=== PATIENT | male | born 1955 | race Caucasian/White ===

== ENCOUNTER 2019-06-12 13:07 | Inpatient (IN) | payer BC, OTHER ==
[2019-06-12 15:18] VITALS: BMI 25.5
--- NOTE | 2019-06-12 17:15 | HP ---
COWS - Scale Resting Pulse: 1= [place] 81-100 Sweatin= Chills/Flushing Restless Observation: 3= Extraneous Movement Pupil Size: 1= Pupils >than Normal Bone or Joint Aches: 2= Severe Diffuse Aches Runny Nose/ Eye Tearin= Runny Nose/Eyes GI Upset > 30mins: 2= Nausea/Diarrhea Tremor Observation: 1= Tremor [place], Not Seen Yawning Observation: 1= 1-2x During Session Anxiety or Irritability: 1=Feels Anxious/Irritable Goose Flesh Skin: 0=Smooth Skin COWS Score: 15 CIWA Score Nausea/Vomitin-Mild Nausea/No Vomiting Muscle Tremors: 3 Anxiety: 2 Agitation: 3 Paroxysmal Sweats: 3 Orientation: 0-Oriented Tacttile Disturbances: 0-None Auditory Disturbances: 0-None Visual Disturbances: 0-None Headache: 2-Mild CIWA-Ar Total Score: 14 - Admission Criteria OASAS Guidelines: Admission for Medically Managed Detox: Requires at least one of the followin. CIWA greater than 12 2. Seizures within the past 24 hours 3. Delirium tremens within the past 24 hours 4. Hallucinations within the past 24 hours 5. Acute intervention needed for co occurring medical disorder 6. Acute intervention needed for co occurring psychiatric disorder 7. Severe withdrawal that cannot be handled at a lower level of care (continued vomiting, continued diarrhea, abnormal vital signs) requiring intravenous medication and/or fluids 8. Admitting History and Physical - Smoking History Smoking history: Current every day smoker Have you smoked in the past 12 months: Yes Aproximately how many cigarettes per day: 0 - Alcohol/Substance Use Hx Alcohol Use: Yes Admission ROS [facility] Chief Complaint: here for alcohol and heroin detox Allergies/Adverse Reactions: Allergies Allergy/AdvReac Type Severity Reaction Status Date / Time ibuprofen Allergy Severe Verified 06/12/19 15:07 Penicillins Allergy Severe Swelling Verified 06/12/19 15:07 Sulfa (Sulfonamide Allergy Severe Verified 06/12/19 15:07 Antibiotics) History of Present Illness: 64 yo with long h/o of alcohol and heroin use, was not using for about 3 years, relapsed in February. Says he was under stress- started with alcohol use and now using heroin. Lives in [place], has disability, related to construction related accidents and disability. alcohol- 6 back- 8 beers, no h/o siezures, no DT's heroin- 1 bundle/day IH, no overdose, no narcan- pt instructed on getting on PMH- emphysema, COPD, DM- insulin DUR- no recent Utox- Mop, TRAM- 0 - Ebola screening Have you traveled outside of the country in the last 21 days: No Have you had contact with anyone from an Ebola affected area: No Do you have a fever: No - Review of Systems Constitutional: No Symptoms Reported EENT: reports: No Symptoms Reported Respiratory: reports: No Symptoms reported Cardiac: reports: No Symptoms Reported GI: reports: No Symptoms Reported : reports: No Symptoms Reported Musculoskeletal: reports: No Symptoms Reported Integumentary: reports: No Symptoms Reported Neuro: reports: No Symptoms reported Endocrine: reports: No Symptoms Reported Hematology: reports: No Symptoms Reported Psychiatric: reports: No Sypmtoms Reported Other Systems: Reviewed and Negative Patient History - Patient Medical History Hx Anemia: No Hx Asthma: Yes Hx Chronic Obstructive Pulmonary Disease (COPD): No Hx Cancer: No Hx Cardiac Disorders: No Hx Congestive Heart Failure: No Hx Hypertension: Yes Hx Hypercholesterolemia: Yes (zocor) Hx Pacemaker: No HX Cerebrovascular Accident: No Hx Seizures: No Hx Dementia: No Hx Diabetes: Yes (on insulin for 15 years) Hx Gastrointestinal Disorders: No Hx Liver Disease: No Hx Genitourinary Disorders: No Hx Sexually Transmitted Disorders: No Hx Renal Disease (ESRD): No Hx Thyroid Disease: No Hx Human Immunodeficiency Virus (HIV): No Hx Hepatitis C: No Hx Depression: No Hx Suicide Attempt: No Hx Bipolar Disorder: No Hx Schizophrenia: No - Patient Surgical History Past Surgical History: Yes Hx Neurologic Surgery: Yes (cervical laminectomy) Hx Cataract Extraction: No Hx Cardiac Surgery: No Hx Lung Surgery: No Hx Breast Surgery: No Hx Breast Biopsy: No Hx Abdominal Surgery: No Hx Appendectomy: Yes Hx Cholecystectomy: No Hx Genitourinary Surgery: No Hx Section: No Hx Orthopedic Surgery: Yes (shoulder sx.) Other Surgical History: removal of kidney stones in 2008 Anesthesia Reaction: No - PPD History Date: 11/02/15 Results: 0 mm - Smoking Cessation Smoking history: Current every day smoker Have you smoked in the past 12 months: Yes Aproximately how many cigarettes per day: 0 Cigars Per Day: 0 Hx Chewing Tobacco Use: No Initiated information on smoking cessation: No 'Breaking Loose' booklet given: 06/12/19 - Substances abused Heroin Substance route: Inhalation Frequency: Daily Amount used: 10 bags Age of first use: 25 Date of last use: 06/12/19 Alcohol Substance route: Oral Frequency: Daily Amount used: 6 pk daily Age of first use: 25 Date of last use: 06/10/19 Admission Physical Exam [facility] - Vital Signs Vital Signs: Vital Signs - 24 hr 06/12/19 15:14 Temperature 98.2 F Pulse Rate 95 H Respiratory 20 Rate Blood Pressure 131/67 - Physical General Appearance: Yes: Within Normal Limits, Nourished HEENTM: Yes: Within Normal Limits, Normal Voice Respiratory: Yes: Within Normal Limits, Chest Non-Tender, Lungs Clear Neck: Yes: Within Normal Limits Cardiology: Yes: Within Normal Limits Abdominal: Yes: Within Normal Limits Genitourinary: Yes: Within Normal Limits Musculoskeletal: Yes: Within Normal Limits Extremities: Yes: Within Normal Limits Neurological: Yes: Within Normal Limits Integumentary: Yes: Within Normal Limits Lymphatic: Yes: Within Normal Limits - Diagnostic (1) Alcohol withdrawal Current Visit: No Status: Acute (2) Opioid dependence with withdrawal Current Visit: No Status: Acute (3) Anxiety and depression Current Visit: No Status: Chronic (4) Diabetes 1.5, managed as type 1 Current Visit: No Status: Chronic (5) Essential hypertension Current Visit: No Status: Chronic (6) Heroin dependence Current Visit: No Status: Chronic Breathalyzer - Breathalyzer Breathalyzer: 0 Urine Drug Screen - Test Device Lot number: [id number] Expiration date: 02/20/21 - Control Is test valid?: Yes - Results Drug screen NEGATIVE: No Urine drug screen results: MOP-Opiates Inpatient Rehab Admission - Rehab Decision to Admit Inpatient rehab admission?: No
[2019-06-12] MEDS ORDERED: NALOXONE HCL 0.4 MG/ML VIAL IM PRN (17:21)
[2019-06-12] MEDS ORDERED: clonazePAM 0.5 MG TABLET PO PRN (17:21)
[2019-06-12] MEDS ORDERED: cloNIDine HCL 0.1 MG TABLET PO PRN (17:21)
[2019-06-12] MEDS ORDERED: LORazepam 1 MG TABLET PO PRN (17:23)
[2019-06-12] MEDS ORDERED: NICOTINE POLACRILEX 2 MG GUM BUC PRN (17:25)
[2019-06-12] MEDS ORDERED: MAGNESIUM HYDROX 2400MG/30ML ORAL SUSPENSION 30 ML CUP PO PRN (17:25)
[2019-06-12] MEDS ORDERED: MENTHOL/PHENOL 1 EACH UD MM PRN (17:25)
[2019-06-12] MEDS ORDERED: ACETAMINOPHEN 325 MG TABLET (FP) PO PRN (17:25)
[2019-06-12] MEDS ORDERED: MAGNESIUM CITRATE 300 ML BOTTLE PO PRN (17:25)
[2019-06-12] MEDS ORDERED: ALBUTEROL SO4 8 GM HFA INHALER IH PRN (17:30)
[2019-06-12] MEDS ORDERED: INSULIN SQ SCH (18:00)
[2019-06-12] MEDS ORDERED: METHADONE HCL 10 MG TABLET (FOR DETOX USE ONLY) PO ONE (18:45)
[2019-06-12] MEDS: LORazepam 1 MG TABLET PO SCH ×2 (19:05→22:02)
[2019-06-12] MEDS: INSULIN SLIDING SCALE (NOVOLOG) 1 VIAL SQ SCH (19:08)
[2019-06-12] MEDS: INSULIN (LEVEMIR) 100 UNITS/ML UNITS SQ SCH (20:38)
[2019-06-12] MEDS: MAG HYDROX/AL HYDROX/SIMETH 30 ML UNIT-DOSE CUP PO PRN (21:18)
[2019-06-12] MEDS: THIAMINE HCL 100 MG TABLET (FP) PO SCH (22:02)
[2019-06-12] MEDS: FLUTICASONE/SALMETEROL 100 MCG/50 MCG DISKUS IH SCH (22:47)
[2019-06-13] MEDS: LORazepam 1 MG TABLET PO SCH ×2 (05:57→10:26)
[2019-06-13] MEDS ORDERED: LOPERAMIDE HCL 2 MG CAPSULE PO PRN (06:42)
[2019-06-13] MEDS: INSULIN SLIDING SCALE (NOVOLOG) 1 VIAL SQ SCH ×4 (08:30→21:03)
[2019-06-13] MEDS: INSULIN (LEVEMIR) 100 UNITS/ML UNITS SQ SCH ×2 (08:31→20:30)
[2019-06-13] MEDS ORDERED: METHADONE HCL 10 MG TABLET (FOR DETOX USE ONLY) ONE (09:58)
[2019-06-13] MEDS ORDERED: METHADONE HCL 5 MG TABLET (FOR DETOX USE ONLY) ONE (09:58)
[2019-06-13] MEDS ORDERED: METHADONE (DETOX) 20 MG, METHADONE (DETOX) 5 MG PO ONE (10:00)
[2019-06-13] MEDS ORDERED: PATIENT'S OWN MEDICATION (NON-FORMULARY) (Umeclidinium Brm/Vilanterol Tr [Anoro Ellipta 62 IH SCH (10:00)
--- NOTE | 2019-06-13 10:02 | PN ---
[facility] CIWA - CIWA Score Nausea/Vomitin-Mild Nausea/No Vomiting Muscle Tremors: 3 Anxiety: 3 Agitation: 2 Paroxysmal Sweats: 1-Minimal Palms Moist Orientation: 0-Oriented Tacttile Disturbances: 1-Very Mild Itch/Numbness Auditory Disturbances: 1-Very Mild Visual Disturbances: 0-None Headache: 1-Very Mild CIWA-Ar Total Score: 13 [facility] COWS - Scale Resting Pulse: 1= [place] 81-100 Sweatin= Chills/Flushing Restless Observation: 0= Sits Still Pupil Size: 1= Pupils >than Normal Bone or Joint Aches: 2= Severe Diffuse Aches Runny Nose/ Eye Tearin= Nasal Congestion GI Upset > 30mins: 2= Nausea/Diarrhea (encourage imodium prn) Tremor Observation of Outstretched Hands: 1= Tremor [place], Not Seen Yawning Observation: 0= None Anxiety or Irritability: 1=Feels Anxious/Irritable Goose Flesh Skin: 3=Piloe[place] COWS Score: 13 S Progress Note (SOAP) Subjective: 64 years old male admitted on 06/12/19 for alcohol and opiate withdrawal sx management treated with ativan and methadone detox regimen nausea zofran 4 mg sl x 1 diarrhea encourage imodium ambulating on hallway alert steady gait denies dizziness Objective: 06/13/19 10:19 Vital Signs Temperature 97.2 F L 06/13/19 09:09 Pulse Rate 83 06/13/19 09:09 Respiratory Rate 18 06/13/19 09:09 Blood Pressure 122/64 06/13/19 09:09 O2 Sat by Pulse Oximetry (%) Laboratory Last Values POC Glucometer 242 UNITS (80-120) 06/13/19 05:52 06/13/19 10:19 lab pending Assessment: 06/13/19 10:19 alcohol and opiate withdrawal sx Plan: continue ativan and methadone detox regimen
[2019-06-13 10:16] LABS: HEMATOCRIT 40.3 % (35.4-49); HEMOGLOBIN 13.5 GM/dL (11.7-16.9); MCH 31.9 pg (25.7-33.7); MCHC 33.6 g/dl (32.0-35.9); MEAN CELL VOLUME 95.1 fl (80-96); PLATELET COUNT 187 K/MM3 (134-434); RBC 4.24 M/mm3 (4.00-5.60); RDW 13.3 % (11.9-15.9); WHITE BLOOD COUNT 6.5 K/mm3 (4.0-10.0)
[2019-06-13] MEDS: LISINOPRIL 10 MG TABLET (FP) PO SCH (10:21)
[2019-06-13] MEDS: ASPIRIN 81 MG CHEWABLE TABLETS PO SCH (10:22)
[2019-06-13] MEDS: HYDROCHLOROTHIAZIDE 25 MG TABLET (FP) PO SCH (10:22)
[2019-06-13] MEDS: PRENATAL VITAMINS W/ FOLIC ACID TABLET (FP) PO SCH (10:22)
[2019-06-13] MEDS: FLUTICASONE/SALMETEROL 100 MCG/50 MCG DISKUS IH SCH ×2 (10:24→21:45)
[2019-06-13] MEDS: ONDANSETRON *ODT* 4 MG TABLET SL ONE ×2 (10:24→10:25)
[2019-06-13] MEDS ORDERED: diazePAM 5 MG TABLET PO PRN (10:32)
[2019-06-13 10:38] LABS: ALBUMIN 3.4 g/dl (3.4-5.0); BILIRUBIN,TOTAL 0.6 mg/dL (0.2-1); BLOOD UREA NITROGEN 25.3 mg/dL (7-18); CALCIUM 8.4 mg/dL (8.5-10.1); CREATININE 0.9 mg/dL (0.55-1.3); POTASSIUM 4.2 mmol/L (3.5-5.1); TOT PROT 6.2 g/dl (6.4-8.2)
[2019-06-13] MEDS ORDERED: INSULIN (NOVOLOG) ASPART 100 UNITS/ML 10ML VIAL SQ ONE (11:58)
--- NOTE | 2019-06-13 15:06 | CONSULT ---
[facility] Psychiatric Consult - Data Date of interview: 06/13/19 Admission source: [facility] Identifying data: This is one of several admissions to [facility] for this 64 y/ o male self-referred for detoxification (ANGEL issues : alcohol, heroin) . Interviewed at [address] [place] [address]. Patient is single, a father of one, domiciled, unemployed (disabled) and supported on SSI benefits. Substance Abuse History: Discussed with patient. Able to maintain sobriety for three consecutive years until recent relapse. Details are concordant with current [facility] data collected on admission : Smoking history: Current every day smoker. Have you smoked in the past 12 months: Yes. Aproximately how many cigarettes per day: 0. Cigars Per Day: 0. Hx Chewing Tobacco Use: No. Initiated information on smoking cessation: No. 'Breaking Loose' booklet given : 06/12/19. - Substances abused. Heroin. Substance route: Inhalation. Frequency: Daily. Amount used: 10 bags. Age of first use: 25. Date of last use: 06/12/19. Alcohol. Substance route: Oral. Frequency: Daily. Amount used: 6 pk daily. Age of first use: 25. Date of last use: 06/10/19 Medical History: Medical profile is remarkable for a history of bronchial asthma , emphysema, hypertension, insulin-dependent diabetes mellitus, chronic low back pain and pituitary adenoma. Noted report of past cervical laminectomy and arthroscopic surgery (shoulders). Psychiatric History: Forgetful historian. Patient endorses the diagnosis of MDD + history of three psychiatric hospitalizations ([facility]) . Not able to recall names of the other institutions. Chronically non-adherent to psychiatric OPD care. Mr Mansfield has reportedly been prescribed various medications (citalopram, aripriprazole, duloxetine) in the past. Not taken for months, as per self-report. Patient admits to one suicide attempt, years ago, via overdose with medications. Physical/Sexual Abuse/Trauma History: Patient denies history of abuse. Stressors : loneliness (living alone), addictions and medical illnesses. Additional Comment: Urine drug screen results: MOP-Opiates. Noted. Mental Status Exam - Mental Status Exam Alert and Oriented to: Time, Place, Person Cognitive Function: Good Patient Appearance: Well Groomed Mood: Withdrawn, Hopeful Affect: Mood Congruent, Constricted Patient Behavior: Fatigued, Appropriate, Cooperative Speech Pattern: Clear, Appropriate Voice Loudness: Normal Thought Process: Intact, Goal Oriented Thought Disorder: Not Present Hallucinations: Denies Suicidal Ideation: Denies Homicidal Ideation: Denies Insight/Judgement: Fair Sleep: Poorly, Difficulty falling asleep Appetite: Fair Muscle strength/Tone: Normal Gait/Station: Normal Psychiatric Findings - Problem List ([place] 1, 2,3) (1) Alcohol withdrawal Current Visit: Yes Status: Acute (2) Opioid dependence with withdrawal Current Visit: Yes Status: Acute (3) Nicotine dependence Current Visit: Yes Status: Chronic Qualifiers: Nicotine product type: cigarettes Substance use status: unspecified nicotine-induced disorder Qualified Code(s): F17.219 - Nicotine dependence, cigarettes, with unspecified nicotine-induced disorders (4) Substance induced mood disorder Current Visit: Yes Status: Chronic (5) History of depression Current Visit: Yes Status: Chronic (6) Insomnia Current Visit: Yes Status: Chronic (7) Non-compliance Current Visit: Yes Status: Chronic - Initial Treatment Plan Initial Treatment Plan: Psychoeducation. Sleep hygiene. Detoxification. Support. Insomnia is addressed with belsomra 5 mg po hs prn. Side effects/ benefits revisited with the patient. mr Mansfield is in agreement with this plan of care. Antidepressant medications discussed with patient. Not accepted at this time. Motivational counseling. Groups. AA/NA meetings. MAT services recommended to patient : met with ambivalence. Observation.
[2019-06-13] MEDS: diazePAM 5 MG TABLET PO SCH ×2 (15:28→21:45)
[2019-06-13] MEDS: MAG HYDROX/AL HYDROX/SIMETH 30 ML UNIT-DOSE CUP PO PRN (18:46)
[2019-06-13 21:20] LABS: URINE APPEARANCE CLEAR; URINE BILIRUBIN NEGATIVE (NEGATIVE); URINE COLOR YELLOW; URINE GLUCOSE (UA) 3+ (NEGATIVE); URINE KETONE NEGATIVE (NEGATIVE); URINE LEUK ESTERASE NEGATIVE (NEGATIVE); URINE NITRITE NEGATIVE (NEGATIVE); URINE PROTEIN NEGATIVE (NEGATIVE); URINE UROBILINOGEN 0.2 mg/dL (0.2-1.0)
[2019-06-13] MEDS: THIAMINE HCL 100 MG TABLET (FP) PO SCH (21:45)
[2019-06-13] MEDS: SUVOREXANT 5 MG TABLET PO PRN (21:48)
[2019-06-14] MEDS: diazePAM 5 MG TABLET PO PRN ×3 (01:49→16:06)
[2019-06-14] MEDS ORDERED: LORazepam 0.5 MG TABLET PO SCH (05:00)
[2019-06-14] MEDS: diazePAM 5 MG TABLET PO SCH ×3 (05:19→21:50)
[2019-06-14] MEDS: INSULIN SLIDING SCALE (NOVOLOG) 1 VIAL SQ SCH ×4 (07:14→21:55)
[2019-06-14] MEDS: INSULIN (LEVEMIR) 100 UNITS/ML UNITS SQ SCH ×2 (07:59→21:54)
[2019-06-14] MEDS ORDERED: INSULIN (NOVOLOG) ASPART 100 UNITS/ML 10ML VIAL SQ ONE ×2 (08:31→11:55)
--- NOTE | 2019-06-14 09:44 | PN ---
[facility] CIWA - CIWA Score Nausea/Vomitin-Mild Nausea/No Vomiting Muscle Tremors: 3 Anxiety: 3 Agitation: 2 Paroxysmal Sweats: 2 Orientation: 0-Oriented Tacttile Disturbances: 1-Very Mild Itch/Numbness Auditory Disturbances: 0-None Visual Disturbances: 0-None Headache: 0-None Present CIWA-Ar Total Score: 12 S COWS - Scale Resting Pulse: 0= [place] 80 or Below Sweatin= Chills/Flushing Restless Observation: 0= Sits Still Pupil Size: 1= Pupils >than Normal Bone or Joint Aches: 1= Mild Discomfort Runny Nose/ Eye Tearin= Nasal Congestion GI Upset > 30mins: 2= Nausea/Diarrhea (no diarrhea) Tremor Observation of Outstretched Hands: 2= Slight Tremor Visible Yawning Observation: 2= >3x During Session Anxiety or Irritability: 2=Irritable/Anxious Goose Flesh Skin: 0=Smooth Skin COWS Score: 12 S Progress Note (SOAP) Subjective: 64 years old male admitted on 06/12/19 for alcohol and opiate withdrawal sx management treated with valium and methadone detox regimen reported 32 years of insulin dependent diabetes "counting calories" equation for insulin coverage discuss alcohol consumption related glucose 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 to discuss diabetes diet Objective: 06/14/19 09:42 Vital Signs Temperature 96.0 F L 06/14/19 09:11 Pulse Rate 78 06/14/19 09:11 Respiratory Rate 18 06/14/19 09:11 Blood Pressure 121/64 06/14/19 09:11 O2 Sat by Pulse Oximetry (%) Laboratory Last Values WBC 6.5 K/mm3 (4.0-10.0) 06/13/19 08:15 RBC 4.24 M/mm3 (4.00-5.60) 06/13/19 08:15 Hgb 13.5 GM/dL (11.7-16.9) 06/13/19 08:15 Hct 40.3 % (35.4-49) 06/13/19 08:15 MCV 95.1 fl (80-96) 06/13/19 08:15 MCH 31.9 pg (25.7-33.7) 06/13/19 08:15 MCHC 33.6 g/dl (32.0-35.9) 06/13/19 08:15 RDW 13.3 % (11.9-15.9) 06/13/19 08:15 Plt Count 187 K/MM3 (134-434) D 06/13/19 08:15 MPV 9.0 fl (7.5-11.1) 06/13/19 08:15 Sodium 137 mmol/L (136-145) 06/13/19 08:15 Potassium 4.2 mmol/L (3.5-5.1) 06/13/19 08:15 Chloride 103 mmol/L (98-107) 06/13/19 08:15 Carbon Dioxide 30 mmol/L (21-32) 06/13/19 08:15 Anion Gap 4 MMOL/L (8-16) L 06/13/19 08:15 BUN 25.3 mg/dL (7-18) H 06/13/19 08:15 Creatinine 0.9 mg/dL (0.55-1.3) 06/13/19 08:15 Est GFR (CKD-EPI)AfAm 105.72 06/13/19 08:15 Est GFR (CKD-EPI)NonAf 91.22 06/13/19 08:15 POC Glucometer 181 UNITS (80-120) 06/14/19 05:20 Random Glucose 193 mg/dL (74-106) H 06/13/19 08:15 Calcium 8.4 mg/dL (8.5-10.1) L 06/13/19 08:15 Total Bilirubin 0.6 mg/dL (0.2-1) 06/13/19 08:15 AST 15 U/L (15-37) 06/13/19 08:15 ALT 24 U/L (13-61) 06/13/19 08:15 Alkaline Phosphatase 54 U/L (45-117) 06/13/19 08:15 Total Protein 6.2 g/dl (6.4-8.2) L 06/13/19 08:15 Albumin 3.4 g/dl (3.4-5.0) 06/13/19 08:15 Urine Color Yellow 06/13/19 21:10 Urine Appearance Clear 06/13/19 21:10 Urine pH 5.0 (5.0-8.0) 06/13/19 21:10 Ur Specific [place] 1.026 (1.010-1.035) 11/20/19 21:10 Urine Protein Negative (NEGATIVE) 06/13/19 21:10 Urine Glucose (UA) 3+ (NEGATIVE) H 06/13/19 21:10 Urine Ketones Negative (NEGATIVE) 06/13/19 21:10 Urine Blood Negative (NEGATIVE) 06/13/19 21:10 Urine Nitrite Negative (NEGATIVE) 06/13/19 21:10 Urine Bilirubin Negative (NEGATIVE) 06/13/19 21:10 Urine Urobilinogen 0.2 mg/dL (0.2-1.0) 06/13/19 21:10 Ur Leukocyte Esterase Negative (NEGATIVE) 06/13/19 21:10 RPR Titer Nonreactive (NONREACTIVE) 06/13/19 08:15 lab noted long history of diabetes strong recommend oral fluid intake discuss risks of diabetes related fluid volume deficit Assessment: 06/14/19 09:44 alcohol and opiate withdrawal sx patient was taking oxy monthly since 201506/14/19 09:46 discuss medication assisted treatment program Plan: continue valium and methadone detox regimen lease picker narcan from pharmacy
[2019-06-14] MEDS ORDERED: METHADONE HCL 10 MG TABLET (FOR DETOX USE ONLY) PO ONE (10:00)
[2019-06-14] MEDS: FLUTICASONE/SALMETEROL 100 MCG/50 MCG DISKUS IH SCH ×2 (10:14→21:55)
[2019-06-14] MEDS: PRENATAL VITAMINS W/ FOLIC ACID TABLET (FP) PO SCH (10:14)
[2019-06-14] MEDS: HYDROCHLOROTHIAZIDE 25 MG TABLET (FP) PO SCH (10:14)
[2019-06-14] MEDS: ASPIRIN 81 MG CHEWABLE TABLETS PO SCH (10:14)
[2019-06-14] MEDS: LISINOPRIL 10 MG TABLET (FP) PO SCH (10:14)
[2019-06-14] MEDS: INSULIN (NOVOLOG) ASPART 100 UNITS/ML 10ML VIAL SQ SCH (17:31)
[2019-06-14] MEDS: hydrOXYzine PAMOATE 25 MG CAPSULE (FP) PO PRN (17:33)
[2019-06-14] MEDS: MAG HYDROX/AL HYDROX/SIMETH 30 ML UNIT-DOSE CUP PO PRN (17:58)
[2019-06-14] MEDS: THIAMINE HCL 100 MG TABLET (FP) PO SCH (21:50)
[2019-06-14] MEDS: SUVOREXANT 5 MG TABLET PO PRN (21:51)
[2019-06-15] MEDS ORDERED: LORazepam 0.5 MG TABLET PO PRN
[2019-06-15] MEDS ORDERED: diazePAM 5 MG TABLET PO PRN (00:01)
[2019-06-15] MEDS ORDERED: LORazepam 0.5 MG TABLET PO SCH (05:00)
[2019-06-15] MEDS: diazePAM 5 MG TABLET PO SCH ×2 (06:11→17:06)
[2019-06-15] MEDS: INSULIN SLIDING SCALE (NOVOLOG) 1 VIAL SQ SCH ×4 (07:53→22:39)
[2019-06-15] MEDS: INSULIN (NOVOLOG) ASPART 100 UNITS/ML 10ML VIAL SQ SCH ×3 (07:53→16:59)
[2019-06-15] MEDS: INSULIN (LEVEMIR) 100 UNITS/ML UNITS SQ SCH ×2 (07:54→22:38)
[2019-06-15] MEDS: TAMSULOSIN HCL 0.4 MG CAP PO SCH (07:54)
[2019-06-15] MEDS ORDERED: METHADONE HCL 10 MG TABLET (FOR DETOX USE ONLY) ONE (08:36)
[2019-06-15] MEDS ORDERED: METHADONE HCL 5 MG TABLET (FOR DETOX USE ONLY) ONE (08:36)
[2019-06-15] MEDS ORDERED: METHADONE (DETOX) 10 MG, METHADONE (DETOX) 5 MG PO ONE (10:00)
[2019-06-15] MEDS: FLUTICASONE/SALMETEROL 100 MCG/50 MCG DISKUS IH SCH ×2 (10:18→22:33)
[2019-06-15] MEDS: LISINOPRIL 10 MG TABLET (FP) PO SCH (10:19)
[2019-06-15] MEDS: HYDROCHLOROTHIAZIDE 25 MG TABLET (FP) PO SCH (10:19)
[2019-06-15] MEDS: PRENATAL VITAMINS W/ FOLIC ACID TABLET (FP) PO SCH (10:19)
[2019-06-15] MEDS: ASPIRIN 81 MG CHEWABLE TABLETS PO SCH (10:19)
[2019-06-15] MEDS: diazePAM 5 MG TABLET PO PRN ×2 (10:19→22:40)
[2019-06-15] MEDS ORDERED: INSULIN SLIDING SCALE (NOVOLOG) 1 VIAL SQ ONE (11:42)
--- NOTE | 2019-06-15 13:35 | PN ---
[facility] CIWA - CIWA Score Nausea/Vomitin-Mild Nausea/No Vomiting Muscle Tremors: 2 Anxiety: 2 Agitation: 2 Paroxysmal Sweats: 1-Minimal Palms Moist Orientation: 0-Oriented Tacttile Disturbances: 1-Very Mild Itch/Numbness Auditory Disturbances: 0-None Visual Disturbances: 0-None Headache: 2-Mild CIWA-Ar Total Score: 11 S COWS - Scale Resting Pulse: 1= [place] 81-100 Sweatin= No chills or Flushing Restless Observation: 1= Difficult to Sit Still Pupil Size: 1= Pupils >than Normal Bone or Joint Aches: 1= Mild Discomfort Runny Nose/ Eye Tearin= Nasal Congestion GI Upset > 30mins: 1= Stomach Cramp Tremor Observation of Outstretched Hands: 1= Tremor [place], Not Seen Yawning Observation: 1= 1-2x During Session Anxiety or Irritability: 2=Irritable/Anxious Goose Flesh Skin: 0=Smooth Skin COWS Score: 10 [facility] Progress Note (SOAP) Subjective: alert,irritable,anxious,interrupted sleep,tremor,pain in the body and back Objective: 06/15/19 13:33 Vital Signs Temperature 96.8 F L 06/15/19 13:30 Pulse Rate 91 H 06/15/19 13:30 Respiratory Rate 18 06/15/19 13:30 Blood Pressure 137/75 06/15/19 13:30 O2 Sat by Pulse Oximetry (%) 06/15/19 13:34 Laboratory Last Values WBC 6.5 K/mm3 (4.0-10.0) 06/13/19 08:15 RBC 4.24 M/mm3 (4.00-5.60) 06/13/19 08:15 Hgb 13.5 GM/dL (11.7-16.9) 06/13/19 08:15 Hct 40.3 % (35.4-49) 06/13/19 08:15 MCV 95.1 fl (80-96) 06/13/19 08:15 MCH 31.9 pg (25.7-33.7) 06/13/19 08:15 MCHC 33.6 g/dl (32.0-35.9) 06/13/19 08:15 RDW 13.3 % (11.9-15.9) 06/13/19 08:15 Plt Count 187 K/MM3 (134-434) D 06/13/19 08:15 MPV 9.0 fl (7.5-11.1) 06/13/19 08:15 Sodium 137 mmol/L (136-145) 06/13/19 08:15 Potassium 4.2 mmol/L (3.5-5.1) 06/13/19 08:15 Chloride 103 mmol/L (98-107) 06/13/19 08:15 Carbon Dioxide 30 mmol/L (21-32) 06/13/19 08:15 Anion Gap 4 MMOL/L (8-16) L 06/13/19 08:15 BUN 25.3 mg/dL (7-18) H 06/13/19 08:15 Creatinine 0.9 mg/dL (0.55-1.3) 06/13/19 08:15 Est GFR (CKD-EPI)AfAm 105.72 06/13/19 08:15 Est GFR (CKD-EPI)NonAf 91.22 06/13/19 08:15 POC Glucometer 264 UNITS (80-120) 06/15/19 11:36 Random Glucose 193 mg/dL (74-106) H 06/13/19 08:15 Calcium 8.4 mg/dL (8.5-10.1) L 06/13/19 08:15 Total Bilirubin 0.6 mg/dL (0.2-1) 06/13/19 08:15 AST 15 U/L (15-37) 06/13/19 08:15 ALT 24 U/L (13-61) 06/13/19 08:15 Alkaline Phosphatase 54 U/L (45-117) 06/13/19 08:15 Total Protein 6.2 g/dl (6.4-8.2) L 06/13/19 08:15 Albumin 3.4 g/dl (3.4-5.0) 06/13/19 08:15 Urine Color Yellow 06/13/19 21:10 Urine Appearance Clear 06/13/19 21:10 Urine pH 5.0 (5.0-8.0) 06/13/19 21:10 Ur Specific [place] 1.026 (1.010-1.035) 06/13/19 21:10 Urine Protein Negative (NEGATIVE) 06/13/19 21:10 Urine Glucose (UA) 3+ (NEGATIVE) H 06/13/19 21:10 Urine Ketones Negative (NEGATIVE) 06/13/19 21:10 Urine Blood Negative (NEGATIVE) 06/13/19 21:10 Urine Nitrite Negative (NEGATIVE) 06/13/19 21:10 Urine Bilirubin Negative (NEGATIVE) 06/13/19 21:10 Urine Urobilinogen 0.2 mg/dL (0.2-1.0) 06/13/19 21:10 Ur Leukocyte Esterase Negative (NEGATIVE) 06/13/19 21:10 RPR Titer Nonreactive (NONREACTIVE) 06/13/19 08:15 Assessment: 06/15/19 13:34 withdrawal symptom Plan: continue detox methadone and valium regimen,bgm monitoring with insulin coverage
[2019-06-15] MEDS: hydrOXYzine PAMOATE 25 MG CAPSULE (FP) PO PRN (15:53)
[2019-06-15] MEDS: THIAMINE HCL 100 MG TABLET (FP) PO SCH (22:33)
--- NOTE | 2019-06-15 23:34 | EKG ---
Test Reason : Blood Pressure : / mmHG Vent. Rate : 076 BPM Atrial Rate : 076 BPM P-R Int : 148 ms QRS Dur : 094 ms QT Int : 366 ms P-R-T Axes : 055 049 033 degrees QTc Int : 411 ms NORMAL SINUS RHYTHM NORMAL ECG NO PREVIOUS ECGS AVAILABLE Confirmed by MD Jm, Nile ([id number]) on 06/15/2019 11:34:17 PM Referred By: Confirmed By:Nile Oneal MD
[2019-06-16] MEDS ORDERED: LORazepam 0.5 MG TABLET PO ONE (05:00)
[2019-06-16] MEDS ORDERED: diazePAM 5 MG TABLET PO ONE (06:00)
[2019-06-16] MEDS: INSULIN (NOVOLOG) ASPART 100 UNITS/ML 10ML VIAL SQ SCH ×3 (07:56→17:05)
[2019-06-16] MEDS: INSULIN SLIDING SCALE (NOVOLOG) 1 VIAL SQ SCH ×4 (07:57→21:31)
[2019-06-16] MEDS: INSULIN (LEVEMIR) 100 UNITS/ML UNITS SQ SCH ×2 (07:58→21:30)
[2019-06-16] MEDS ORDERED: METHADONE HCL 10 MG TABLET (FOR DETOX USE ONLY) PO ONE (10:00)
[2019-06-16] MEDS: ASPIRIN 81 MG CHEWABLE TABLETS PO SCH (10:46)
[2019-06-16] MEDS: TAMSULOSIN HCL 0.4 MG CAP PO SCH (10:46)
[2019-06-16] MEDS: HYDROCHLOROTHIAZIDE 25 MG TABLET (FP) PO SCH (10:46)
[2019-06-16] MEDS: LISINOPRIL 10 MG TABLET (FP) PO SCH (10:46)
[2019-06-16] MEDS: PRENATAL VITAMINS W/ FOLIC ACID TABLET (FP) PO SCH (10:46)
[2019-06-16] MEDS: hydrOXYzine PAMOATE 25 MG CAPSULE (FP) PO PRN ×2 (10:49→20:38)
[2019-06-16] MEDS: FLUTICASONE/SALMETEROL 100 MCG/50 MCG DISKUS IH SCH ×2 (10:51→21:34)
[2019-06-16] MEDS: ACETAMINOPHEN 325 MG TABLET (FP) PO PRN ×2 (11:03→20:21)
[2019-06-16] MEDS: METHOCARBAMOL 500 MG TABLET PO PRN ×2 (11:04→20:38)
--- NOTE | 2019-06-16 11:13 | PN ---
[facility] CIWA - CIWA Score Nausea/Vomitin-No Nausea/No Vomiting Muscle Tremors: None Anxiety: 2 Agitation: 0-Normal Activity Paroxysmal Sweats: 2 Orientation: 0-Oriented Tacttile Disturbances: 0-None Auditory Disturbances: 0-None Visual Disturbances: 0-None Headache: 0-None Present CIWA-Ar Total Score: 4 S COWS - Scale Resting Pulse: 0= [place] 80 or Below Sweatin= Chills/Flushing Restless Observation: 0= Sits Still Pupil Size: 0= Normal to Room Light Bone or Joint Aches: 0= None Runny Nose/ Eye Tearin= None GI Upset > 30mins: 0= None Tremor Observation of Outstretched Hands: 0= None Yawning Observation: 1= 1-2x During Session Anxiety or Irritability: 2=Irritable/Anxious Goose Flesh Skin: 0=Smooth Skin COWS Score: 4 [facility] Progress Note (SOAP) Subjective: c/o mild anxiety and sweats. Objective: 06/16/19 11:12 Vital Signs 06/16/19 06/16/19 06/16/19 03:30 06:32 09:28 Temperature 97.6 F 96.6 F L Pulse Rate 88 93 H Respiratory 18 18 18 Rate Blood Pressure 148/84 121/77 Laboratory Last Values WBC 6.5 K/mm3 (4.0-10.0) 06/13/19 08:15 RBC 4.24 M/mm3 (4.00-5.60) 06/13/19 08:15 Hgb 13.5 GM/dL (11.7-16.9) 06/13/19 08:15 Hct 40.3 % (35.4-49) 06/13/19 08:15 MCV 95.1 fl (80-96) 06/13/19 08:15 MCH 31.9 pg (25.7-33.7) 06/13/19 08:15 MCHC 33.6 g/dl (32.0-35.9) 06/13/19 08:15 RDW 13.3 % (11.9-15.9) 06/13/19 08:15 Plt Count 187 K/MM3 (134-434) D 06/13/19 08:15 MPV 9.0 fl (7.5-11.1) 06/13/19 08:15 Sodium 137 mmol/L (136-145) 06/13/19 08:15 Potassium 4.2 mmol/L (3.5-5.1) 06/13/19 08:15 Chloride 103 mmol/L (98-107) 06/13/19 08:15 Carbon Dioxide 30 mmol/L (21-32) 06/13/19 08:15 Anion Gap 4 MMOL/L (8-16) L 06/13/19 08:15 BUN 25.3 mg/dL (7-18) H 06/13/19 08:15 Creatinine 0.9 mg/dL (0.55-1.3) 06/13/19 08:15 Est GFR (CKD-EPI)AfAm 105.72 06/13/19 08:15 Est GFR (CKD-EPI)NonAf 91.22 06/13/19 08:15 POC Glucometer 234 UNITS (80-120) 06/16/19 06:24 Random Glucose 193 mg/dL (74-106) H 06/13/19 08:15 Calcium 8.4 mg/dL (8.5-10.1) L 06/13/19 08:15 Total Bilirubin 0.6 mg/dL (0.2-1) 06/13/19 08:15 AST 15 U/L (15-37) 06/13/19 08:15 ALT 24 U/L (13-61) 06/13/19 08:15 Alkaline Phosphatase 54 U/L (45-117) 06/13/19 08:15 Total Protein 6.2 g/dl (6.4-8.2) L 06/13/19 08:15 Albumin 3.4 g/dl (3.4-5.0) 06/13/19 08:15 Urine Color Yellow 06/13/19 21:10 Urine Appearance Clear 06/13/19 21:10 Urine pH 5.0 (5.0-8.0) 06/13/19 21:10 Ur Specific [place] 1.026 (1.010-1.035) 06/13/19 21:10 Urine Protein Negative (NEGATIVE) 06/13/19 21:10 Urine Glucose (UA) 3+ (NEGATIVE) H 06/13/19 21:10 Urine Ketones Negative (NEGATIVE) 06/13/19 21:10 Urine Blood Negative (NEGATIVE) 06/13/19 21:10 Urine Nitrite Negative (NEGATIVE) 06/13/19 21:10 Urine Bilirubin Negative (NEGATIVE) 06/13/19 21:10 Urine Urobilinogen 0.2 mg/dL (0.2-1.0) 06/13/19 21:10 Ur Leukocyte Esterase Negative (NEGATIVE) 06/13/19 21:10 RPR Titer Nonreactive (NONREACTIVE) 06/13/19 08:15 Labs noted. Assessment: 06/16/19 11:12 AOX3, in no acute respiratory distress. Full ROM, ambulating in the unit. Mild Withdrawal symptoms. For d/c tomorrow. Plan: continue detox. D/C in AM.
[2019-06-16] MEDS: MAG HYDROX/AL HYDROX/SIMETH 30 ML UNIT-DOSE CUP PO PRN (20:21)
[2019-06-16] MEDS: THIAMINE HCL 100 MG TABLET (FP) PO SCH (21:33)
[2019-06-16] MEDS: SUVOREXANT 5 MG TABLET PO PRN (21:34)
[2019-06-16] MEDS: MELATONIN 5 MG TABLETS PO PRN (21:35)
[2019-06-17] MEDS: METHOCARBAMOL 500 MG TABLET PO PRN ×4 (03:16→23:36)
[2019-06-17] MEDS: ACETAMINOPHEN 325 MG TABLET (FP) PO PRN ×4 (03:16→23:37)
[2019-06-17] MEDS ORDERED: METHADONE HCL 5 MG TABLET (FOR DETOX USE ONLY) PO ONE (06:00)
[2019-06-17] MEDS: INSULIN (NOVOLOG) ASPART 100 UNITS/ML 10ML VIAL SQ SCH ×3 (08:25→16:59)
[2019-06-17] MEDS: INSULIN SLIDING SCALE (NOVOLOG) 1 VIAL SQ SCH ×4 (08:25→21:16)
[2019-06-17] MEDS: INSULIN (LEVEMIR) 100 UNITS/ML UNITS SQ SCH ×2 (08:26→20:45)
[2019-06-17] MEDS: PRENATAL VITAMINS W/ FOLIC ACID TABLET (FP) PO SCH (10:23)
[2019-06-17] MEDS: FLUTICASONE/SALMETEROL 100 MCG/50 MCG DISKUS IH SCH ×2 (10:23→21:16)
[2019-06-17] MEDS: TAMSULOSIN HCL 0.4 MG CAP PO SCH (10:23)
[2019-06-17] MEDS: ASPIRIN 81 MG CHEWABLE TABLETS PO SCH (10:23)
[2019-06-17] MEDS: LISINOPRIL 10 MG TABLET (FP) PO SCH (10:23)
[2019-06-17] MEDS: HYDROCHLOROTHIAZIDE 25 MG TABLET (FP) PO SCH (10:23)
--- NOTE | 2019-06-17 10:30 | DS ---
[facility] Detox Discharge Summary Admission Date: 06/12/19 Discharge Date: 06/17/19 - History Present History: Alcohol Dependence, Opioid Dependence Additional Comments: 64 YEARS OLD MALE ADMITTED ON 06/12/19 FOR ALCOHOL AND OPIATE WITHDRAWAL SX MANAGEMENT TREATED WITH VALIUM AND METHADONE DETOX REGIMEN PATIENT IS ALERT ORIENTED X 3 CARDIAC S1S2 REGULAR RATE RHYTHM RESPIRATORY CLEAR LUNG BILATERALLY ON AUSCULTATION ABDOMEN SOFT NO REBOUND TENDERNESS - Physical Exam Results Vital Signs: Vital Signs Temperature 97.2 F L 06/17/19 09:26 Pulse Rate 91 H 06/17/19 09:26 Respiratory Rate 18 06/17/19 09:26 Blood Pressure 147/83 06/17/19 09:26 O2 Sat by Pulse Oximetry (%) Pertinent Admission Physical Exam Findings: ALCOHOL AND OPIATE WITHDRAWAL SX Laboratory Last Values WBC 6.5 K/mm3 (4.0-10.0) 06/13/19 08:15 RBC 4.24 M/mm3 (4.00-5.60) 06/13/19 08:15 Hgb 13.5 GM/dL (11.7-16.9) 06/13/19 08:15 Hct 40.3 % (35.4-49) 06/13/19 08:15 MCV 95.1 fl (80-96) 06/13/19 08:15 MCH 31.9 pg (25.7-33.7) 06/13/19 08:15 MCHC 33.6 g/dl (32.0-35.9) 06/13/19 08:15 RDW 13.3 % (11.9-15.9) 06/13/19 08:15 Plt Count 187 K/MM3 (134-434) D 06/13/19 08:15 MPV 9.0 fl (7.5-11.1) 06/13/19 08:15 Sodium 137 mmol/L (136-145) 06/13/19 08:15 Potassium 4.2 mmol/L (3.5-5.1) 06/13/19 08:15 Chloride 103 mmol/L (98-107) 06/13/19 08:15 Carbon Dioxide 30 mmol/L (21-32) 06/13/19 08:15 Anion Gap 4 MMOL/L (8-16) L 06/13/19 08:15 BUN 25.3 mg/dL (7-18) H 06/13/19 08:15 Creatinine 0.9 mg/dL (0.55-1.3) 06/13/19 08:15 Est GFR (CKD-EPI)AfAm 105.72 06/13/19 08:15 Est GFR (CKD-EPI)NonAf 91.22 06/13/19 08:15 POC Glucometer 141 UNITS (80-120) 06/17/19 06:11 Random Glucose 193 mg/dL (74-106) H 06/13/19 08:15 Calcium 8.4 mg/dL (8.5-10.1) L 06/13/19 08:15 Total Bilirubin 0.6 mg/dL (0.2-1) 06/13/19 08:15 AST 15 U/L (15-37) 06/13/19 08:15 ALT 24 U/L (13-61) 06/13/19 08:15 Alkaline Phosphatase 54 U/L (45-117) 06/13/19 08:15 Total Protein 6.2 g/dl (6.4-8.2) L 06/13/19 08:15 Albumin 3.4 g/dl (3.4-5.0) 06/13/19 08:15 Urine Color Yellow 06/13/19 21:10 Urine Appearance Clear 06/13/19 21:10 Urine pH 5.0 (5.0-8.0) 06/13/19 21:10 Ur Specific [place] 1.026 (1.010-1.035) 06/13/19 21:10 Urine Protein Negative (NEGATIVE) 06/13/19 21:10 Urine Glucose (UA) 3+ (NEGATIVE) H 06/13/19 21:10 Urine Ketones Negative (NEGATIVE) 06/13/19 21:10 Urine Blood Negative (NEGATIVE) 06/13/19 21:10 Urine Nitrite Negative (NEGATIVE) 06/13/19 21:10 Urine Bilirubin Negative (NEGATIVE) 06/13/19 21:10 Urine Urobilinogen 0.2 mg/dL (0.2-1.0) 06/13/19 21:10 Ur Leukocyte Esterase Negative (NEGATIVE) 06/13/19 21:10 RPR Titer Nonreactive (NONREACTIVE) 06/13/19 08:15 LAB NOTED - Treatment Hospital Course: Detox Protocol Followed, Detoxed Safely, Responded well, Discharged Condition Good, Rehab Referral Accepted Patient has Accepted a Rehab Referral to: [facility] - Medication Discharge Medications: Ambulatory Orders Hydrochlorothiazide [Hctz -] 25 mg PO DAILY 06/09/12 Insulin (Levemir) [Levemir Flexpen -] 40 units SQ BID 06/09/12 Aspirin [ASA -] 81 mg PO DAILY 08/30/14 Lisinopril [Prinivil -] 30 mg PO DAILY 08/30/14 Alfuzosin HCl [Alfuzosin HCl ER] 10 mg PO DAILY 10/31/15 Umeclidinium Brm/Vilanterol Tr [Anoro Ellipta 62.5-25 Mcg INH] 1 each IH DAILY 06/12/19 Insulin Lispro [Humalog Kwikpen U-100] 30 unit SQ TID 06/14/19 Naloxone HCl [Narcan] 4 mg NS ASDIR PRN #1 spray 06/14/19 - Diagnosis (1) Alcohol withdrawal Current Visit: Yes Status: Acute Qualifiers: Complication of substance-induced condition: uncomplicated Qualified Code(s ): F10.230 - Alcohol dependence with withdrawal, uncomplicated (2) Opioid dependence with withdrawal Current Visit: Yes Status: Acute (3) Nicotine dependence Current Visit: Yes Status: Acute Qualifiers: Nicotine product type: cigarettes Substance use status: unspecified nicotine-induced disorder Qualified Code(s): F17.219 - Nicotine dependence, cigarettes, with unspecified nicotine-induced disorders (4) Substance induced mood disorder Current Visit: Yes Status: Suspected (5) Asthma Current Visit: Yes Status: Chronic Qualifiers: Asthma severity: unspecified severity Asthma complication type: uncomplicated (6) Diabetes 1.5, managed as type 1 Current Visit: Yes Status: Chronic (7) Essential hypertension Current Visit: Yes Status: Chronic (8) Hypercholesterolemia Current Visit: Yes Status: Chronic - AMA Did Patient Leave Against Medical Advice: No
--- NOTE | 2019-06-17 11:45 | PN ---
Psychiatric Progress Note Vital Signs: Vital Signs Period Temp Pulse Resp BP Sys/Michaels Pulse Ox Last 24 Hr 97.0 F-98.2 F 87-100 18-18 114-147/66-83 Date of Session: 06/17/19 Chief Complaint:: Assess for suicidal ideation HPI: Patient admitted to for alcohol and cocaine dependence. Stat consult ordered after patient stated to nursing staff . "I might as well kill myself if discharged." ROS: Patient is coherent, alert + oriented X3. Patient is calm , cooperative but tearful and worried about his discharge plan. Current Medications: Active Medications Generic Name Dose Route Start Last Admin Trade Name Freq PRN Reason Stop Dose Admin Acetaminophen 650 mg 06/12/19 17:25 06/17/19 03:16 Tylenol - PO 650 mg Q6H PRN Administration PAIN LEVEL 4 - 6 Acetaminophen 650 mg 06/12/19 17:25 Tylenol - PO Q6H PRN FEVER Al Hydroxide/Mg Hydroxide 30 ml 06/12/19 17:25 06/16/19 20:21 Mylanta Oral Suspension - PO 30 ml Q6H PRN Administration DYSPEPSIA Albuterol Sulfate 2 puff 06/12/19 17:30 Ventolin Hfa Inhaler - IH Q4H PRN ASTHMA Aspirin 81 mg 06/13/19 10:00 06/17/19 10:23 Asa - PO 81 mg DAILY KATHY Administration Eucalyptus/Menthol/Phenol/Sorbitol 1 each 06/12/19 17:25 Cepastat Lozenge - MM 06/18/19 17:25 Q4H PRN SORE THROAT Hydrochlorothiazide 25 mg 06/13/19 10:00 06/17/19 10:23 Hctz - PO 25 mg DAILY KATHY Administration Hydroxyzine Pamoate 25 mg 06/12/19 17:25 06/16/19 20:38 Vistaril - PO 06/18/19 17:25 25 mg Q6H PRN Administration For Anxiety Insulin Aspart 1 vial 06/14/19 12:05 06/17/19 08:25 Novolog Vial Sliding Scale - SQ Not Given ACHS [facility] Protocol Insulin Aspart 15 units 06/14/19 16:30 06/17/19 08:25 Novolog Vial SQ 15 units TIDAC [facility] Administration Protocol Insulin Detemir 40 units 06/14/19 12:04 06/17/19 08:26 Levemir Vial SQ 40 units BID@0800,2000 KATHY Administration Lisinopril 30 mg 06/13/19 10:00 06/17/19 10:23 Prinivil PO 30 mg DAILY KATHY Administration Loperamide HCl 4 mg 06/13/19 06:42 Imodium - PO Q6H PRN DIARRHEA Magnesium Citrate 300 ml 06/12/19 17:25 Citroma - PO Q48H PRN CONSTIPATION Magnesium Hydroxide 30 ml 06/12/19 17:25 Milk Of Magnesia - PO PRN PRN CONSTIPATION Melatonin 5 mg 06/12/19 22:00 06/16/19 21:35 Melatonin PO 5 mg HS PRN Administration INSOMNIA Methocarbamol 500 mg 06/12/19 17:25 06/17/19 10:25 Robaxin - PO 06/18/19 17:25 500 mg Q6H PRN Administration MUSCLE SPASMS Naloxone HCl 0.4 mg 06/12/19 17:21 Narcan - IM PRN PRN RESPIRATORY DEPRESSION Nicotine Polacrilex 2 mg 06/12/19 17:25 Nicorette Gum - BUC Q2H PRN NICOTINE REPLACEMENT RX Multivit/Folic Acid/Iron 1 tab 06/13/19 10:00 06/17/19 10:23 Vitamins (Sjr) - PO 1 tab DAILY KATHY Administration Fluticasone/Salmeterol 1 puff 06/12/19 22:00 06/17/19 10:23 Advair 100mcg/50mcg - IH 1 puff BID KATHY Administration Tamsulosin HCl 0.4 mg 06/15/19 08:30 06/17/19 10:23 Flomax - PO 0.4 mg DAILY@0830 KATHY Administration Thiamine HCl 100 mg 06/12/19 22:00 06/16/19 21:33 Vitamin B1 - PO 100 mg HS KATHY Administration Medication(s) Change(s): No. Current Side Effect: No Lab tests ordered: No Lab tests reviewed: Yes Provider note:: Patient seen by Dr. Sykes on 06/13/19. Dr. Sykes note read and appreciated. Patient is a 64 year old male with a past history of MDD. Reports no psychiatric treatment in several years. History of one suicide attempt by overdose in 2002. Stat consult ordered after he stated to nursing staff, " I might as well kill myself." Upon approach patient was polite, well dressed, calm and cooperative. Billing Manager able to speak to law writer in a private office. As per patient he informed nursing staff " I might as well kill myself" after he was told that his discharge is today. Patient stated to law writer that he made those comments due to his frustration with his discharge planning. Stated to law writer that there is no confirmed placement for him after discharge. Reports being informed that there are no available beds for him in rehab and that [facility] has yet to confirm a bed for him. Patient upset, tearful and highly concerned about being discharge with no aftercare. Mr. Mansfield stated to law writer that he does not know what will happen to him if he is discharged with no aftercare. Patient unable to state that he won't attempt to hurt himself. Stated that because detox is a short stay, his desire to use fentanyl remains high. Mr. Mansfield reports positive outcomes when continuing treatment in rehab. Case discussed with multidisciplinary team. At this time it is imperative that patient remains in detox until a rehab bed becomes available. If discharge, patient can be at risk of relapsing, which then puts him at further risk to hurt himself. Patient does not require 1:1 observation as he denies suicidal/homicidal ideation on the unit. No need to start psychopharmacological treatment at this time. Patient denies depressive symtoms. States all he needs is further treatment for his substance abuse and is highly motivated to continue treatment in rehab. Total face to face time:: 60 Mental Status Exam - Mental Status Exam Alert and Oriented to: Time, Place, Person Cognitive Function: Good Patient Appearance: Well Groomed Mood: Sad, Anxious Affect: Mood Congruent Patient Behavior: Crying (Tearful) Speech Pattern: Appropriate Voice Loudness: Normal Thought Process: Intact, Goal Oriented Thought Disorder: Not Present Hallucinations: Denies Suicidal Ideation: Denies Homicidal Ideation: Denies Insight/Judgement: Poor Sleep: Fair Appetite: Fair Muscle strength/Tone: Normal Gait/Station: Normal Psychiatric Treatment Plan - Problem List (1) Alcohol withdrawal Qualifiers: Complication of substance-induced condition: uncomplicated Qualified Code(s ): F10.230 - Alcohol dependence with withdrawal, uncomplicated (2) Nicotine dependence Qualifiers: Nicotine product type: cigarettes Substance use status: in withdrawal Qualified Code(s): F17.213 - Nicotine dependence, cigarettes, with withdrawal (3) Opioid dependence with withdrawal Comment: .. (4) History of depression Comment: .. (5) Substance induced mood disorder Comment: .. (6) Insomnia Comment: ..
--- NOTE | 2019-06-17 13:33 | PN ---
[facility] CIWA - CIWA Score Nausea/Vomitin-No Nausea/No Vomiting Muscle Tremors: None Anxiety: 1-Mildly Anxious Agitation: 0-Normal Activity Paroxysmal Sweats: 1-Minimal Palms Moist Orientation: 0-Oriented Tacttile Disturbances: 0-None Auditory Disturbances: 0-None Visual Disturbances: 0-None Headache: 0-None Present CIWA-Ar Total Score: 2 S COWS - Scale Resting Pulse: 1= [place] 81-100 Sweatin= No chills or Flushing Restless Observation: 0= Sits Still Pupil Size: 0= Normal to Room Light Bone or Joint Aches: 0= None Runny Nose/ Eye Tearin= None GI Upset > 30mins: 0= None Tremor Observation of Outstretched Hands: 0= None Yawning Observation: 0= None Anxiety or Irritability: 1=Feels Anxious/Irritable Goose Flesh Skin: 0=Smooth Skin COWS Score: 2 [facility] Progress Note (SOAP) Subjective: 64 years old male admitted on 06/12/19 for alcohol and opiate withdrawal sx management treated wtih valium and methadone detox regimen scheduled for discharged today [facility] no available bed as per [facility] no weekend intake for admission patient reported that he wants to kill self that fear of using heroin and drinking alcohol once discharged from detox program psychiatrist evaluation for self harm ideation observation overnight wait for [facility] available as well as [facility] no 1:1 necessary as per psychiatric evaluation Objective: 06/17/19 13:33 Vital Signs Temperature 97.2 F L 06/17/19 09:26 Pulse Rate 91 H 06/17/19 09:26 Respiratory Rate 18 06/17/19 09:26 Blood Pressure 147/83 06/17/19 09:26 O2 Sat by Pulse Oximetry (%) Laboratory Last Values WBC 6.5 K/mm3 (4.0-10.0) 06/13/19 08:15 RBC 4.24 M/mm3 (4.00-5.60) 06/13/19 08:15 Hgb 13.5 GM/dL (11.7-16.9) 06/13/19 08:15 Hct 40.3 % (35.4-49) 06/13/19 08:15 MCV 95.1 fl (80-96) 06/13/19 08:15 MCH 31.9 pg (25.7-33.7) 06/13/19 08:15 MCHC 33.6 g/dl (32.0-35.9) 06/13/19 08:15 RDW 13.3 % (11.9-15.9) 06/13/19 08:15 Plt Count 187 K/MM3 (134-434) D 06/13/19 08:15 MPV 9.0 fl (7.5-11.1) 06/13/19 08:15 Sodium 137 mmol/L (136-145) 06/13/19 08:15 Potassium 4.2 mmol/L (3.5-5.1) 06/13/19 08:15 Chloride 103 mmol/L (98-107) 06/13/19 08:15 Carbon Dioxide 30 mmol/L (21-32) 06/13/19 08:15 Anion Gap 4 MMOL/L (8-16) L 06/13/19 08:15 BUN 25.3 mg/dL (7-18) H 06/13/19 08:15 Creatinine 0.9 mg/dL (0.55-1.3) 06/13/19 08:15 Est GFR (CKD-EPI)AfAm 105.72 06/13/19 08:15 Est GFR (CKD-EPI)NonAf 91.22 06/13/19 08:15 POC Glucometer 227 UNITS (80-120) 06/17/19 11:56 Random Glucose 193 mg/dL (74-106) H 06/13/19 08:15 Calcium 8.4 mg/dL (8.5-10.1) L 06/13/19 08:15 Total Bilirubin 0.6 mg/dL (0.2-1) 06/13/19 08:15 AST 15 U/L (15-37) 06/13/19 08:15 ALT 24 U/L (13-61) 06/13/19 08:15 Alkaline Phosphatase 54 U/L (45-117) 06/13/19 08:15 Total Protein 6.2 g/dl (6.4-8.2) L 06/13/19 08:15 Albumin 3.4 g/dl (3.4-5.0) 06/13/19 08:15 Urine Color Yellow 06/13/19 21:10 Urine Appearance Clear 06/13/19 21:10 Urine pH 5.0 (5.0-8.0) 06/13/19 21:10 Ur Specific [place] 1.026 (1.010-1.035) 06/13/19 21:10 Urine Protein Negative (NEGATIVE) 06/13/19 21:10 Urine Glucose (UA) 3+ (NEGATIVE) H 06/13/19 21:10 Urine Ketones Negative (NEGATIVE) 06/13/19 21:10 Urine Blood Negative (NEGATIVE) 06/13/19 21:10 Urine Nitrite Negative (NEGATIVE) 06/13/19 21:10 Urine Bilirubin Negative (NEGATIVE) 06/13/19 21:10 Urine Urobilinogen 0.2 mg/dL (0.2-1.0) 06/13/19 21:10 Ur Leukocyte Esterase Negative (NEGATIVE) 06/13/19 21:10 RPR Titer Nonreactive (NONREACTIVE) 06/13/19 08:15 lab noted Assessment: alcohol and opiate withdrawal sx Plan: psychiatrist observation
[2019-06-17] MEDS: MAG HYDROX/AL HYDROX/SIMETH 30 ML UNIT-DOSE CUP PO PRN (20:45)
[2019-06-17] MEDS: MELATONIN 5 MG TABLETS PO PRN (21:16)
[2019-06-17] MEDS: THIAMINE HCL 100 MG TABLET (FP) PO SCH (21:16)
[2019-06-18] MEDS: ACETAMINOPHEN 325 MG TABLET (FP) PO PRN (03:06)
[2019-06-18] MEDS: METHOCARBAMOL 500 MG TABLET PO PRN (06:12)
[2019-06-18] MEDS: INSULIN (LEVEMIR) 100 UNITS/ML UNITS SQ SCH (07:11)
[2019-06-18] MEDS: INSULIN (NOVOLOG) ASPART 100 UNITS/ML 10ML VIAL SQ SCH ×2 (07:12→12:00)
[2019-06-18] MEDS: INSULIN SLIDING SCALE (NOVOLOG) 1 VIAL SQ SCH ×2 (07:13→11:59)
[2019-06-18] MEDS: TAMSULOSIN HCL 0.4 MG CAP PO SCH (08:56)
[2019-06-18] MEDS ORDERED: NAPROXEN 375 MG TABLET (FP) PO ONE ×2 (09:41)
[2019-06-18] MEDS: HYDROCHLOROTHIAZIDE 25 MG TABLET (FP) PO SCH (09:55)
[2019-06-18] MEDS: ASPIRIN 81 MG CHEWABLE TABLETS PO SCH (09:55)
[2019-06-18] MEDS: PRENATAL VITAMINS W/ FOLIC ACID TABLET (FP) PO SCH (09:55)
[2019-06-18] MEDS: LISINOPRIL 10 MG TABLET (FP) PO SCH (09:56)
[2019-06-18] MEDS: FLUTICASONE/SALMETEROL 100 MCG/50 MCG DISKUS IH SCH (09:59)
--- NOTE | 2019-06-18 10:02 | DS ---
[facility] Detox Discharge Summary Admission Date: 06/12/19 Discharge Date: 06/18/19 - History Present History: Alcohol Dependence, Opioid Dependence Additional Comments: 64 years old male admitted on 06/12/19 for alcohol and opiate withdrawal sx management treated with valium and methadone detox regimen patient is alert oriented x 3 cardiac [id number] rate rhythm respiratory clear lung bilaterally on auscultation abdomen soft no rebound tenderness - Physical Exam Results Vital Signs: Vital Signs Temperature 96.2 F L 06/18/19 09:15 Pulse Rate 88 06/18/19 09:15 Respiratory Rate 18 06/18/19 09:15 Blood Pressure 129/72 06/18/19 09:15 O2 Sat by Pulse Oximetry (%) Pertinent Admission Physical Exam Findings: alcohol and opiate withdrawal sx Laboratory Last Values WBC 6.5 K/mm3 (4.0-10.0) 06/13/19 08:15 RBC 4.24 M/mm3 (4.00-5.60) 06/13/19 08:15 Hgb 13.5 GM/dL (11.7-16.9) 06/13/19 08:15 Hct 40.3 % (35.4-49) 06/13/19 08:15 MCV 95.1 fl (80-96) 06/13/19 08:15 MCH 31.9 pg (25.7-33.7) 06/13/19 08:15 MCHC 33.6 g/dl (32.0-35.9) 06/13/19 08:15 RDW 13.3 % (11.9-15.9) 06/13/19 08:15 Plt Count 187 K/MM3 (134-434) D 06/13/19 08:15 MPV 9.0 fl (7.5-11.1) 06/13/19 08:15 Sodium 137 mmol/L (136-145) 06/13/19 08:15 Potassium 4.2 mmol/L (3.5-5.1) 06/13/19 08:15 Chloride 103 mmol/L (98-107) 06/13/19 08:15 Carbon Dioxide 30 mmol/L (21-32) 06/13/19 08:15 Anion Gap 4 MMOL/L (8-16) L 06/13/19 08:15 BUN 25.3 mg/dL (7-18) H 06/13/19 08:15 Creatinine 0.9 mg/dL (0.55-1.3) 06/13/19 08:15 Est GFR (CKD-EPI)AfAm 105.72 06/13/19 08:15 Est GFR (CKD-EPI)NonAf 91.22 06/13/19 08:15 POC Glucometer 183 UNITS (80-120) 06/18/19 05:12 Random Glucose 193 mg/dL (74-106) H 06/13/19 08:15 Calcium 8.4 mg/dL (8.5-10.1) L 06/13/19 08:15 Total Bilirubin 0.6 mg/dL (0.2-1) 06/13/19 08:15 AST 15 U/L (15-37) 06/13/19 08:15 ALT 24 U/L (13-61) 06/13/19 08:15 Alkaline Phosphatase 54 U/L (45-117) 06/13/19 08:15 Total Protein 6.2 g/dl (6.4-8.2) L 06/13/19 08:15 Albumin 3.4 g/dl (3.4-5.0) 06/13/19 08:15 Urine Color Yellow 06/13/19 21:10 Urine Appearance Clear 06/13/19 21:10 Urine pH 5.0 (5.0-8.0) 06/13/19 21:10 Ur Specific [place] 1.026 (1.010-1.035) 06/13/19 21:10 Urine Protein Negative (NEGATIVE) 06/13/19 21:10 Urine Glucose (UA) 3+ (NEGATIVE) H 06/13/19 21:10 Urine Ketones Negative (NEGATIVE) 06/13/19 21:10 Urine Blood Negative (NEGATIVE) 06/13/19 21:10 Urine Nitrite Negative (NEGATIVE) 06/13/19 21:10 Urine Bilirubin Negative (NEGATIVE) 06/13/19 21:10 Urine Urobilinogen 0.2 mg/dL (0.2-1.0) 06/13/19 21:10 Ur Leukocyte Esterase Negative (NEGATIVE) 06/13/19 21:10 RPR Titer Nonreactive (NONREACTIVE) 06/13/19 08:15 lab noted long history of diabetes - Treatment Hospital Course: Detox Protocol Followed, Detoxed Safely, Responded well, Discharged Condition Good, Rehab Referral Accepted Patient has Accepted a Rehab Referral to: [facility] - Medication Discharge Medications: Ambulatory Orders Hydrochlorothiazide [Hctz -] 25 mg PO DAILY 06/09/12 Insulin (Levemir) [Levemir Flexpen -] 40 units SQ BID 06/09/12 Aspirin [ASA -] 81 mg PO DAILY 08/30/14 Lisinopril [Prinivil -] 30 mg PO DAILY 08/30/14 Alfuzosin HCl [Alfuzosin HCl ER] 10 mg PO DAILY 10/31/15 Umeclidinium Brm/Vilanterol Tr [Anoro Ellipta 62.5-25 Mcg INH] 1 each IH DAILY 06/12/19 Insulin Lispro [Humalog Kwikpen U-100] 30 unit SQ TID 06/14/19 Naloxone HCl [Narcan] 4 mg NS ASDIR PRN #1 spray 06/14/19 - Diagnosis (1) Alcohol withdrawal Current Visit: Yes Status: Acute Qualifiers: Complication of substance-induced condition: uncomplicated Qualified Code(s ): F10.230 - Alcohol dependence with withdrawal, uncomplicated (2) Opioid dependence with withdrawal Current Visit: Yes Status: Acute (3) Nicotine dependence Current Visit: Yes Status: Acute Qualifiers: Nicotine product type: cigarettes Substance use status: in withdrawal Qualified Code(s): F17.213 - Nicotine dependence, cigarettes, with withdrawal (4) Substance induced mood disorder Current Visit: Yes Status: Suspected (5) Asthma Current Visit: Yes Status: Chronic Qualifiers: Asthma severity: mild Asthma persistence: intermittent Asthma complication type: with status asthmaticus Qualified Code(s): J45.22 - Mild intermittent asthma with status asthmaticus (6) Diabetes 1.5, managed as type 1 Current Visit: Yes Status: Chronic (7) Essential hypertension Current Visit: Yes Status: Chronic (8) Hypercholesterolemia Current Visit: Yes Status: Chronic - AMA Did Patient Leave Against Medical Advice: No CIWA Score - CIWA Score Nausea/Vomitin-No Nausea/No Vomiting Muscle Tremors: None Anxiety: 1-Mildly Anxious Agitation: 0-Normal Activity Paroxysmal Sweats: No Perspiration Orientation: 0-Oriented Tacttile Disturbances: 0-None Auditory Disturbances: 0-None Visual Disturbances: 0-None Headache: 0-None Present CIWA-Ar Total Score: 1 COWS (PN) - Opiate Withdrawal Resting Pulse: 1= CT 81-100 Sweatin= No chills or Flushing Restless Observation: 0= Sits Still Pupil Size: 0= Normal to Room Light Bone or Joint Aches: 0= None Runny Nose/ Eye Tearin= None GI Upset > 30mins: 0= None Tremor Observation of Outstretched Hands: 1= Tremor [place], Not Seen Yawning Observation: 0= None Anxiety or Irritability: 0= None Goose Flesh Skin: 0=Smooth Skin COWS Score: 2
[2019-06-18] MEDS ORDERED: INSULIN SLIDING SCALE (NOVOLOG) 1 VIAL SQ ONE (12:02)
[2019-06-18 13:08] VITALS: BP 109/71; PULSE 97; TEMP 97.1
--- NOTE | 2019-06-18 16:01 | EKG ---
Test Reason : Blood Pressure : / mmHG Vent. Rate : 079 BPM Atrial Rate : 079 BPM P-R Int : 136 ms QRS Dur : 092 ms QT Int : 374 ms P-R-T Axes : 050 045 010 degrees QTc Int : 428 ms NORMAL SINUS RHYTHM MINIMAL VOLTAGE CRITERIA FOR LVH, MAY BE NORMAL VARIANT BORDERLINE ECG WHEN COMPARED WITH ECG OF 15-JUN-2019 15:07, NO SIGNIFICANT CHANGE WAS FOUND Confirmed by JANN OMALELY, WILLIAM ([id number]) on 06/18/2019 4:01:23 PM Referred By: Confirmed By:WILLIAM FORTE MD
== END 2019-06-18 14:45 | disposition other institution (70) | DRG 897 ==
LOC: YASAS 13:07 → Y3N 18:09
PROVIDERS: ADMIT Allergy & Immunology; ATTEND Allergy & Immunology
PROC: HZ2ZZZZ Detoxification Services for Substance Abuse Treatment (ICD-10-PCS; principal; 2019-06-12)
DX: F10.230 Alcohol dependence with withdrawal, uncomplicated (principal); F14.20 Cocaine dependence, uncomplicated; J45.22 Mild intermittent asthma with status asthmaticus; R45.851 Suicidal ideations; F11.23 Opioid dependence with withdrawal; F17.210 Nicotine dependence, cigarettes, uncomplicated; F19.24 Other psychoactive substance dependence with psychoactive substance-induced mood disorder; I10 Essential (primary) hypertension; J43.8 Other emphysema; E78.00 Pure hypercholesterolemia, unspecified; E10.9 Type 1 diabetes mellitus without complications; Z79.4 Long term (current) use of insulin; M54.5 Low back pain; G89.29 Other chronic pain; Z88.0 Allergy status to penicillin; Z88.2 Allergy status to sulfonamides; Z88.6 Allergy status to analgesic agent
CPT/HCPCS: 36415; 80053; 81003; 82962; 85027; 86593; 93005; 93010; J0735; Q0162

== ENCOUNTER 2019-06-18 14:59 | Inpatient (IN) | payer BC ==
--- NOTE | 2019-06-18 10:07 | HP ---
[facility] Rehab Assess/Revision - Admission History Admitted to Rehab from: [facility] Date of Admission to Rehab: 06/18/19 - Findings Detox History & Physical reviewed: Yes Concur with findings: Yes Comments/Additional Findings: transferred from detox to rehab admission as per protocol Inpatient Rehab Admission - Rehab Decision to Admit Inpatient rehab admission?: Yes - Initial Determination Are CD services needed?: Yes Free of communicable disease: Yes Not in need of hospitalization: Yes - Rehab Admission Criteria Previous failed treatment: Yes Poor recovery environment: Yes Comorbidities: Yes Lacks judgement: Yes Patient is meeting Inpatient Rehab admission criteria:: Yes
[~2019-06-18 14:59] MED LIST: ACETAMINOPHEN 325 MG TABLET (FP) PO PRN; ALBUTEROL SO4 8 GM HFA INHALER IH PRN; LOPERAMIDE HCL 2 MG CAPSULE PO PRN; MAG HYDROX/AL HYDROX/SIMETH 30 ML UNIT-DOSE CUP PO PRN; MAGNESIUM CITRATE 300 ML BOTTLE PO PRN; MAGNESIUM HYDROX 2400MG/30ML ORAL SUSPENSION 30 ML CUP PO PRN; MENTHOL/PHENOL 1 EACH UD MM PRN; NALOXONE HCL NS PRN; NICOTINE 14 MG/24 HOURS TOPICAL PATCH TD PRN; NICOTINE POLACRILEX 2 MG GUM BC PRN; P-EPHED 60MG/TRIPROLIDI 2.5MG TABLET PO PRN; guaiFENesin 200 MG/10 ML 10 ML UNIT-DOSE CUPS PO PRN
[2019-06-18] MEDS ORDERED: INSULIN (LEVEMIR) 100 UNITS/ML UNITS SQ SCH (16:30)
[2019-06-18] MEDS: INSULIN (NOVOLOG) ASPART 100 UNITS/ML 10ML VIAL SQ SCH (18:51)
[2019-06-18] MEDS: THIAMINE HCL 100 MG TABLET (FP) PO SCH (21:26)
[2019-06-18] MEDS: INSULIN (LEVEMIR) 100 UNITS/ML UNITS SQ SCH (21:26)
[2019-06-18] MEDS ORDERED: MELATONIN 5 MG TABLETS PO PRN (22:00)
[2019-06-18] MEDS ORDERED: NAPROXEN 375 MG TABLET (FP) PO PRN (22:15)
[2019-06-18] MEDS ORDERED: INSULIN (NOVOLOG) ASPART 100 UNITS/ML 10ML VIAL SQ ONE (22:19)
[2019-06-18] MEDS: BUDESONIDE/FORMETEROL FUMARATE 160/4.5 mcg INHALER IH SCH (22:46)
[2019-06-19] MEDS: INSULIN (NOVOLOG) ASPART 100 UNITS/ML 10ML VIAL SQ SCH ×3 (07:52→17:08)
[2019-06-19] MEDS: INSULIN (LEVEMIR) 100 UNITS/ML UNITS SQ SCH ×2 (07:53→21:26)
[2019-06-19] MEDS: HYDROCHLOROTHIAZIDE 25 MG TABLET (FP) PO SCH (11:26)
[2019-06-19] MEDS: LISINOPRIL 10 MG TABLET (FP) PO SCH (11:26)
[2019-06-19] MEDS: TAMSULOSIN HCL 0.4 MG CAP PO SCH (11:26)
[2019-06-19] MEDS: ASPIRIN 81 MG CHEWABLE TABLETS PO SCH (11:26)
[2019-06-19] MEDS: BUDESONIDE/FORMETEROL FUMARATE 160/4.5 mcg INHALER IH SCH ×2 (11:27→21:29)
[2019-06-19] MEDS: PRENATAL VITAMINS W/ FOLIC ACID TABLET (FP) PO SCH (11:27)
--- NOTE | 2019-06-19 11:40 | PN ---
[facility] Progress Note Note: Pt is a 64 y/o male with a hx of ANGEL admitted to [address] [place] [address] rehab from [address] [place] [address] yesterday. Pt reports chronic back problems requiring his 9th surgery and wants Motrin 600 mg which works for him. Also would like a pain patch. Pt is currently on Naprosyn but states he prefers Motrin. Pt was in detox from 06/12 -06/18/19 with a Drug of choice of heroin and alcohol. Medical history of Asthma, COPD, IDDM, HTN and psych history of depression. Vital Signs - 24 hr 06/18/19 06/19/19 06/19/19 15:01 01:20 03:30 Temperature 97.9 F Pulse Rate 92 H Respiratory 18 18 18 Rate Blood Pressure 123/62 06/19/19 07:16 Temperature 97.2 F L Pulse Rate 88 Respiratory 18 Rate Blood Pressure 109/75 Alert o x 3 nad oob ambulating with steady gait A/P new admit to rehab S/p detox Reorder insulin sliding scale as directed motrin 600 mg po q6h prn for pain robaxin 500 mg po tid prn for muscle spasm lidocaine patch 5% apply daily as directed. pt agreeable with poc.
[2019-06-19] MEDS ORDERED: METHOCARBAMOL 500 MG TABLET PO PRN (11:55)
[2019-06-19] MEDS: LIDOCAINE 5% TOPICAL PATCH TP SCH (12:45)
[2019-06-19] MEDS: IBUPROFEN 600 MG TABLET (FP) PO PRN ×2 (12:50→21:30)
[2019-06-19] MEDS: INSULIN SLIDING SCALE (NOVOLOG) 1 VIAL SQ SCH ×2 (17:10→21:28)
[2019-06-19] MEDS: LIDOCAINE PATCH REMOVAL MC SCH (21:28)
[2019-06-19] MEDS: THIAMINE HCL 100 MG TABLET (FP) PO SCH (21:29)
[2019-06-20] MEDS: IBUPROFEN 600 MG TABLET (FP) PO PRN ×2 (06:32→20:58)
[2019-06-20] MEDS: INSULIN (NOVOLOG) ASPART 100 UNITS/ML 10ML VIAL SQ SCH ×3 (08:07→16:56)
[2019-06-20] MEDS: INSULIN SLIDING SCALE (NOVOLOG) 1 VIAL SQ SCH ×4 (08:08→22:08)
[2019-06-20] MEDS: INSULIN (LEVEMIR) 100 UNITS/ML UNITS SQ SCH ×2 (08:08→20:57)
[2019-06-20] MEDS: BUDESONIDE/FORMETEROL FUMARATE 160/4.5 mcg INHALER IH SCH ×2 (10:32→22:08)
[2019-06-20] MEDS: LISINOPRIL 10 MG TABLET (FP) PO SCH (10:32)
[2019-06-20] MEDS: PRENATAL VITAMINS W/ FOLIC ACID TABLET (FP) PO SCH (10:33)
[2019-06-20] MEDS: TAMSULOSIN HCL 0.4 MG CAP PO SCH (10:33)
[2019-06-20] MEDS: HYDROCHLOROTHIAZIDE 25 MG TABLET (FP) PO SCH (10:33)
[2019-06-20] MEDS: ASPIRIN 81 MG CHEWABLE TABLETS PO SCH (10:33)
[2019-06-20] MEDS: LIDOCAINE 5% TOPICAL PATCH TP SCH (10:35)
[2019-06-20] MEDS: LIDOCAINE PATCH REMOVAL MC SCH (22:07)
[2019-06-20] MEDS: THIAMINE HCL 100 MG TABLET (FP) PO SCH (22:09)
[2019-06-20] MEDS ORDERED: INSULIN (NOVOLOG) ASPART 100 UNITS/ML 10ML VIAL ONE (22:30)
[2019-06-21] MEDS ORDERED: INSULIN (NOVOLOG) ASPART 100 UNITS/ML 10ML VIAL ONE ×4 (07:21→21:55)
[2019-06-21] MEDS ORDERED: INSULIN (LEVEMIR) 100 UNITS/ML UNITS SQ ONE (07:23)
[2019-06-21] MEDS: IBUPROFEN 600 MG TABLET (FP) PO PRN (07:24)
[2019-06-21] MEDS: INSULIN (NOVOLOG) ASPART 100 UNITS/ML 10ML VIAL SQ SCH ×3 (07:41→16:45)
[2019-06-21] MEDS: INSULIN SLIDING SCALE (NOVOLOG) 1 VIAL SQ SCH ×4 (07:42→21:36)
[2019-06-21] MEDS: INSULIN (LEVEMIR) 100 UNITS/ML UNITS SQ SCH ×2 (07:42→20:50)
[2019-06-21] MEDS: TAMSULOSIN HCL 0.4 MG CAP PO SCH (09:25)
[2019-06-21] MEDS: ASPIRIN 81 MG CHEWABLE TABLETS PO SCH (10:08)
[2019-06-21] MEDS: LISINOPRIL 10 MG TABLET (FP) PO SCH (10:08)
[2019-06-21] MEDS: PRENATAL VITAMINS W/ FOLIC ACID TABLET (FP) PO SCH (10:08)
[2019-06-21] MEDS: LIDOCAINE 5% TOPICAL PATCH TP SCH (10:09)
[2019-06-21] MEDS: HYDROCHLOROTHIAZIDE 25 MG TABLET (FP) PO SCH (10:09)
[2019-06-21] MEDS: BUDESONIDE/FORMETEROL FUMARATE 160/4.5 mcg INHALER IH SCH ×2 (10:11→21:36)
[2019-06-21] MEDS: THIAMINE HCL 100 MG TABLET (FP) PO SCH (21:35)
[2019-06-21] MEDS: LIDOCAINE PATCH REMOVAL MC SCH (21:50)
[2019-06-22] MEDS: IBUPROFEN 600 MG TABLET (FP) PO PRN ×2 (07:36→20:50)
[2019-06-22] MEDS: INSULIN (NOVOLOG) ASPART 100 UNITS/ML 10ML VIAL SQ SCH ×3 (07:38→16:56)
[2019-06-22] MEDS: INSULIN SLIDING SCALE (NOVOLOG) 1 VIAL SQ SCH ×4 (07:39→21:36)
[2019-06-22] MEDS: INSULIN (LEVEMIR) 100 UNITS/ML UNITS SQ SCH ×2 (07:39→20:48)
[2019-06-22] MEDS: TAMSULOSIN HCL 0.4 MG CAP PO SCH (08:42)
[2019-06-22] MEDS: BUDESONIDE/FORMETEROL FUMARATE 160/4.5 mcg INHALER IH SCH ×2 (10:42→21:37)
[2019-06-22] MEDS: HYDROCHLOROTHIAZIDE 25 MG TABLET (FP) PO SCH (10:42)
[2019-06-22] MEDS: ASPIRIN 81 MG CHEWABLE TABLETS PO SCH (10:42)
[2019-06-22] MEDS: PRENATAL VITAMINS W/ FOLIC ACID TABLET (FP) PO SCH (10:42)
[2019-06-22] MEDS: LISINOPRIL 10 MG TABLET (FP) PO SCH (10:42)
[2019-06-22] MEDS: LIDOCAINE 5% TOPICAL PATCH TP SCH (10:43)
[2019-06-22] MEDS ORDERED: INSULIN (NOVOLOG) ASPART 100 UNITS/ML 10ML VIAL ONE (12:00)
[2019-06-22] MEDS: LIDOCAINE PATCH REMOVAL MC SCH (21:35)
[2019-06-22] MEDS: THIAMINE HCL 100 MG TABLET (FP) PO SCH (21:36)
[2019-06-22] MEDS: MELATONIN 5 MG TABLETS PO PRN (21:36)
[2019-06-23] MEDS: IBUPROFEN 600 MG TABLET (FP) PO PRN ×2 (06:41→20:35)
[2019-06-23] MEDS: INSULIN SLIDING SCALE (NOVOLOG) 1 VIAL SQ SCH ×4 (07:36→21:45)
[2019-06-23] MEDS ORDERED: INSULIN (NOVOLOG) ASPART 100 UNITS/ML 10ML VIAL ONE (07:50)
[2019-06-23] MEDS ORDERED: INSULIN (LEVEMIR) 100 UNITS/ML UNITS SQ ONE (07:52)
[2019-06-23] MEDS: INSULIN (NOVOLOG) ASPART 100 UNITS/ML 10ML VIAL SQ SCH ×3 (08:55→17:00)
[2019-06-23] MEDS: INSULIN (LEVEMIR) 100 UNITS/ML UNITS SQ SCH ×2 (08:56→20:32)
[2019-06-23] MEDS: LISINOPRIL 10 MG TABLET (FP) PO SCH (10:15)
[2019-06-23] MEDS: BUDESONIDE/FORMETEROL FUMARATE 160/4.5 mcg INHALER IH SCH ×2 (10:15→21:45)
[2019-06-23] MEDS: ASPIRIN 81 MG CHEWABLE TABLETS PO SCH (10:15)
[2019-06-23] MEDS: TAMSULOSIN HCL 0.4 MG CAP PO SCH (10:15)
[2019-06-23] MEDS: HYDROCHLOROTHIAZIDE 25 MG TABLET (FP) PO SCH (10:15)
[2019-06-23] MEDS: PRENATAL VITAMINS W/ FOLIC ACID TABLET (FP) PO SCH (10:16)
[2019-06-23] MEDS: LIDOCAINE 5% TOPICAL PATCH TP SCH (10:16)
[2019-06-23] MEDS ORDERED: AZITHROMYCIN 250 MG TABLET PO ONE (14:35)
[2019-06-23] MEDS ORDERED: ALBUTEROL SO4 2.5/IPRATROPIUM 0.5 INH SOL 3 ML VIAL.NEB. NEB PRN (14:45)
--- NOTE | 2019-06-23 15:09 | PN ---
[facility] Progress Note (SOAP) Subjective: Painful and sore throat, difficulty swallowing, difficulty breathing and generalized weakness. Objective: 06/23/19 15:01 Patient is referred for complaints of sore throat and difficulty swallowing as well as chest tightness and difficulty breathing. Patient reports h/o several lung infections that start with similar symptoms. General appearance: No apparent distress VS:BP 139/72 HR 92 RR 22 T97.2 HEENT: Normocephalic, no eye discharge, no tragal tenderness, moist oral mucosa with inflamed pharynx, + submental node enlargement Lungs: Mild expiratory wheezes CVS:S1S2, RRR Assessment: 06/23/19 15:09 Strep throat Asthma Plan: Duoneb every 6hrs as needed Z pack Oral fluid intake to be encouraged
[2019-06-23] MEDS: LIDOCAINE PATCH REMOVAL MC SCH (21:44)
[2019-06-23] MEDS: MELATONIN 5 MG TABLETS PO PRN (21:44)
[2019-06-23] MEDS: THIAMINE HCL 100 MG TABLET (FP) PO SCH (21:44)
[2019-06-24] MEDS: IBUPROFEN 600 MG TABLET (FP) PO PRN ×2 (06:04→21:33)
[2019-06-24] MEDS ORDERED: INSULIN (NOVOLOG) ASPART 100 UNITS/ML 10ML VIAL ONE (07:22)
[2019-06-24] MEDS ORDERED: INSULIN (LEVEMIR) 100 UNITS/ML UNITS SQ ONE (07:24)
[2019-06-24] MEDS: INSULIN SLIDING SCALE (NOVOLOG) 1 VIAL SQ SCH ×4 (07:48→21:33)
[2019-06-24] MEDS: INSULIN (NOVOLOG) ASPART 100 UNITS/ML 10ML VIAL SQ SCH ×3 (07:48→16:34)
[2019-06-24] MEDS: INSULIN (LEVEMIR) 100 UNITS/ML UNITS SQ SCH ×2 (07:49→20:36)
[2019-06-24] MEDS: HYDROCHLOROTHIAZIDE 25 MG TABLET (FP) PO SCH (10:26)
[2019-06-24] MEDS: BUDESONIDE/FORMETEROL FUMARATE 160/4.5 mcg INHALER IH SCH ×2 (10:26→21:34)
[2019-06-24] MEDS: LIDOCAINE 5% TOPICAL PATCH TP SCH (10:26)
[2019-06-24] MEDS: PRENATAL VITAMINS W/ FOLIC ACID TABLET (FP) PO SCH (10:26)
[2019-06-24] MEDS: LISINOPRIL 10 MG TABLET (FP) PO SCH (10:27)
[2019-06-24] MEDS: AZITHROMYCIN 250 MG TABLET PO SCH (10:27)
[2019-06-24] MEDS: TAMSULOSIN HCL 0.4 MG CAP PO SCH (10:28)
[2019-06-24] MEDS: ASPIRIN 81 MG CHEWABLE TABLETS PO SCH (10:28)
[2019-06-24] MEDS: MELATONIN 5 MG TABLETS PO PRN (21:32)
[2019-06-24] MEDS: THIAMINE HCL 100 MG TABLET (FP) PO SCH (21:32)
[2019-06-24] MEDS: LIDOCAINE PATCH REMOVAL MC SCH (21:33)
[2019-06-25] MEDS ORDERED: INSULIN (NOVOLOG) ASPART 100 UNITS/ML 10ML VIAL ONE ×2 (06:54→11:50)
[2019-06-25] MEDS: INSULIN (NOVOLOG) ASPART 100 UNITS/ML 10ML VIAL SQ SCH ×3 (07:24→16:33)
[2019-06-25] MEDS: INSULIN (LEVEMIR) 100 UNITS/ML UNITS SQ SCH ×2 (07:25→20:30)
[2019-06-25] MEDS: INSULIN SLIDING SCALE (NOVOLOG) 1 VIAL SQ SCH ×4 (07:25→21:48)
[2019-06-25] MEDS: AZITHROMYCIN 250 MG TABLET PO SCH (10:02)
[2019-06-25] MEDS: BUDESONIDE/FORMETEROL FUMARATE 160/4.5 mcg INHALER IH SCH ×2 (10:02→21:48)
[2019-06-25] MEDS: LIDOCAINE 5% TOPICAL PATCH TP SCH (10:02)
[2019-06-25] MEDS: PRENATAL VITAMINS W/ FOLIC ACID TABLET (FP) PO SCH (10:02)
[2019-06-25] MEDS: ASPIRIN 81 MG CHEWABLE TABLETS PO SCH (10:03)
[2019-06-25] MEDS: LISINOPRIL 10 MG TABLET (FP) PO SCH (10:03)
[2019-06-25] MEDS: TAMSULOSIN HCL 0.4 MG CAP PO SCH (10:03)
[2019-06-25] MEDS: HYDROCHLOROTHIAZIDE 25 MG TABLET (FP) PO SCH (10:04)
--- NOTE | 2019-06-25 17:19 | PN ---
Psychiatric Progress Note Vital Signs: Vital Signs Period Temp Pulse Resp BP Sys/Michaels Pulse Ox Last 24 Hr 97.7 F 78 18-18 148/85 Date of Session: 06/25/19 Chief Complaint:: " I need something to sleep at night ". HPI: Day 8 of treatment at [address] (rehabilitation). Patient is addressing his issues of ANGEL (alcohol, opioid, nicotine) co-morbid with substance-induced mood disorder + MDD (questionable). Hospital course is uneventful. Psychiatric follow-up is sought for management of refractory insomnia. ROS: Unremarkable. Patient is ambulatory, active, mobile and sociable. Cognitively intact. Current Medications: Active Medications Generic Name Dose Route Start Last Admin Trade Name Freq PRN Reason Stop Dose Admin Acetaminophen 650 mg 06/18/19 10:07 Tylenol - PO Q4H PRN FEVER Al Hydroxide/Mg Hydroxide 30 ml 06/18/19 10:07 Mylanta Oral Suspension - PO Q6H PRN DYSPEPSIA Albuterol Sulfate 2 puff 06/18/19 10:12 Ventolin Hfa Inhaler - IH Q4H PRN SHORT OF BREATH/WHEEZING Albuterol/Ipratropium 1 amp 06/23/19 14:45 06/23/19 17:37 Duoneb - NEB 1 amp Q6H PRN Administration WHEEZING Aspirin 81 mg 06/19/19 10:00 06/25/19 10:03 Asa - PO 81 mg DAILY KATHY Administration Azithromycin 250 mg 06/24/19 10:00 06/25/19 10:02 Zithromax - PO 06/28/19 09:59 250 mg DAILY KATHY Administration Budesonide/Formoterol Fumarate 2 puff 06/18/19 22:00 06/25/19 10:02 Symbicort 160/4.5mcg - IH 2 puff BID KATHY Administration Eucalyptus/Menthol/Phenol/Sorbitol 1 each 06/18/19 10:07 06/23/19 06:43 Cepastat Lozenge - MM 1 each Q4H PRN Administration SORE THROAT Guaifenesin 10 ml 06/18/19 10:07 Robitussin - PO Q6H PRN COUGH Hydrochlorothiazide 25 mg 06/19/19 10:00 06/25/19 10:04 Hctz - PO 25 mg DAILY KATHY Administration Ibuprofen 600 mg 06/19/19 11:38 12/01/19 21:33 Motrin - PO 600 mg Q6H PRN Administration PAIN LEVEL 6-10 Insulin Aspart 15 units 06/18/19 17:30 06/25/19 16:33 Novolog Vial SQ 15 units TIDAC KATHY Administration Insulin Aspart 1 vial 06/19/19 16:30 06/25/19 16:33 Novolog Vial Sliding Scale - SQ Not Given ACHS KATHY Protocol Insulin Detemir 40 units 06/18/19 21:30 06/25/19 07:25 Levemir Vial SQ 40 units BID@0730,2130 KATHY Administration Lidocaine 1 patch 06/19/19 11:45 06/25/19 10:02 Lidoderm Patch - TP 1 patch DAILY KATHY Administration Lisinopril 30 mg 06/19/19 10:00 06/25/19 10:03 Prinivil PO 30 mg DAILY KATHY Administration Loperamide HCl 4 mg 06/18/19 10:07 Imodium - PO Q6H PRN DIARRHEA Magnesium Citrate 300 ml 06/18/19 10:07 Citroma - PO Q48H PRN CONSTIPATION Magnesium Hydroxide 30 ml 06/18/19 10:07 Milk Of Magnesia - PO DAILY PRN CONSTIPATION Melatonin 10 mg 06/22/19 11:59 06/24/19 21:32 Melatonin PO 10 mg HS PRN Administration INSOMNIA Methocarbamol 500 mg 06/19/19 11:55 Robaxin - PO TID PRN MUSCLE SPASMS Miscellaneous 1 each 06/19/19 22:00 06/24/19 21:33 Lidoderm Patch Removal MC 1 each DAILY@2200 KATHY Administration Naloxone HCl 4 mg 06/18/19 10:09 Narcan NS ASDIR PRN WITHDRAWAL(CONT SUBST) Nicotine 14 mg 06/18/19 10:07 Nicoderm Patch - TD DAILY PRN NICOTINE REPLACEMENT RX Nicotine Polacrilex 2 mg 06/18/19 10:07 Nicorette Gum - BC Q2H PRN NICOTINE REPLACEMENT RX Multivit/Folic Acid/Iron 1 tab 06/19/19 10:00 06/25/19 10:02 Vitamins (Sjr) - PO 1 tab DAILY KATHY Administration Pseudoephedrine/Triprolidine 1 combo 06/18/19 10:07 Actifed - PO TID PRN NASAL CONGESTION Suvorexant 10 mg 06/25/19 22:00 Belsomra PO HS PRN INSOMNIA Tamsulosin HCl 0.4 mg 06/19/19 08:30 06/25/19 10:03 Flomax - PO 0.4 mg DAILY@0830 KATHY Administration Thiamine HCl 100 mg 06/18/19 22:00 06/24/19 21:32 Vitamin B1 - PO 100 mg HS KATHY Administration Medication(s) Change(s): Added to the regimen : suvorexant 10 mg po hs prn. Side effects/benefits revisited with patient. Mr Mansfield is in agreement with this plan of care. Verbal consent granted to MD. Current Side Effect: No Lab tests ordered: No Lab tests reviewed: Yes Provider note:: Chart reviewed. Multidisciplinary progress notes are appreciated. Patient is already known to me from [address] [place] [address] (see my note of for details). Mr Mansfield is doing well. Noted as jovial, conversant, active and motivated. He is, however, still not interested in taking antidepressant medications. At time of this examination, there is no clinical evidence/ self- report of depressive symptoms to justify utilization of SSRI or mood stabilizers. Recurrent complaint remains insomnia. Addressed with psychoeducation (sleep hygiene) + medication (suvorexant). Patient is at his baseline. Stable mental status (see MSE report for details). Total face to face time:: 25 Mental Status Exam - Mental Status Exam Alert and Oriented to: Time, Place, Person Cognitive Function: Good Patient Appearance: Well Groomed Mood: Hopeful, Euthymic Affect: Appropriate, Normal Range Patient Behavior: Appropriate, Cooperative Speech Pattern: Clear, Appropriate Voice Loudness: Normal Thought Process: Intact, Goal Oriented Thought Disorder: Not Present Hallucinations: Denies Suicidal Ideation: Denies Homicidal Ideation: Denies Insight/Judgement: Good Sleep: Poorly, Difficulty falling asleep Appetite: Good Muscle strength/Tone: Normal Gait/Station: Normal Psychiatric Treatment Plan - Problem List (1) Alcohol dependence Current Visit: Yes Qualifiers: Substance use status: uncomplicated Qualified Code(s): F10.20 - Alcohol dependence, uncomplicated Comment: . (2) Opioid dependence Current Visit: Yes Comment: . (3) Substance induced mood disorder Current Visit: Yes Comment: . (4) Insomnia Current Visit: Yes Comment: .
[2019-06-25] MEDS: IBUPROFEN 600 MG TABLET (FP) PO PRN (20:27)
[2019-06-25] MEDS: THIAMINE HCL 100 MG TABLET (FP) PO SCH (21:47)
[2019-06-25] MEDS: MELATONIN 5 MG TABLETS PO PRN (21:47)
[2019-06-25] MEDS: SUVOREXANT 10 MG TABLET PO PRN (21:47)
[2019-06-25] MEDS: LIDOCAINE PATCH REMOVAL MC SCH (21:48)
[2019-06-26] MEDS: IBUPROFEN 600 MG TABLET (FP) PO PRN ×2 (06:40→21:10)
[2019-06-26] MEDS: INSULIN SLIDING SCALE (NOVOLOG) 1 VIAL SQ SCH ×4 (07:06→21:10)
[2019-06-26] MEDS: INSULIN (NOVOLOG) ASPART 100 UNITS/ML 10ML VIAL SQ SCH ×3 (07:32→16:36)
[2019-06-26] MEDS: INSULIN (LEVEMIR) 100 UNITS/ML UNITS SQ SCH ×2 (07:32→20:35)
[2019-06-26] MEDS: TAMSULOSIN HCL 0.4 MG CAP PO SCH (09:30)
[2019-06-26] MEDS: PRENATAL VITAMINS W/ FOLIC ACID TABLET (FP) PO SCH (10:53)
[2019-06-26] MEDS: HYDROCHLOROTHIAZIDE 25 MG TABLET (FP) PO SCH (10:53)
[2019-06-26] MEDS: ASPIRIN 81 MG CHEWABLE TABLETS PO SCH (10:53)
[2019-06-26] MEDS: LISINOPRIL 10 MG TABLET (FP) PO SCH (10:53)
[2019-06-26] MEDS: BUDESONIDE/FORMETEROL FUMARATE 160/4.5 mcg INHALER IH SCH ×2 (10:54→21:58)
[2019-06-26] MEDS: LIDOCAINE 5% TOPICAL PATCH TP SCH (10:54)
[2019-06-26] MEDS: AZITHROMYCIN 250 MG TABLET PO SCH (10:54)
[2019-06-26] MEDS ORDERED: INSULIN (NOVOLOG) ASPART 100 UNITS/ML 10ML VIAL ONE ×2 (16:36→20:32)
[2019-06-26] MEDS: LIDOCAINE PATCH REMOVAL MC SCH (21:10)
[2019-06-26] MEDS: MELATONIN 5 MG TABLETS PO PRN (21:11)
[2019-06-26] MEDS: SUVOREXANT 10 MG TABLET PO PRN (21:12)
[2019-06-26] MEDS: THIAMINE HCL 100 MG TABLET (FP) PO SCH (21:58)
[2019-06-27] MEDS: INSULIN SLIDING SCALE (NOVOLOG) 1 VIAL SQ SCH ×4 (06:58→21:53)
[2019-06-27] MEDS: INSULIN (NOVOLOG) ASPART 100 UNITS/ML 10ML VIAL SQ SCH ×3 (08:11→16:39)
[2019-06-27] MEDS: INSULIN (LEVEMIR) 100 UNITS/ML UNITS SQ SCH ×2 (08:12→20:35)
[2019-06-27] MEDS: BUDESONIDE/FORMETEROL FUMARATE 160/4.5 mcg INHALER IH SCH ×2 (11:12→21:54)
[2019-06-27] MEDS: PRENATAL VITAMINS W/ FOLIC ACID TABLET (FP) PO SCH (11:12)
[2019-06-27] MEDS: AZITHROMYCIN 250 MG TABLET PO SCH (11:12)
[2019-06-27] MEDS: HYDROCHLOROTHIAZIDE 25 MG TABLET (FP) PO SCH (11:12)
[2019-06-27] MEDS: TAMSULOSIN HCL 0.4 MG CAP PO SCH (11:12)
[2019-06-27] MEDS: LIDOCAINE 5% TOPICAL PATCH TP SCH (11:12)
[2019-06-27] MEDS: ASPIRIN 81 MG CHEWABLE TABLETS PO SCH (11:12)
[2019-06-27] MEDS: LISINOPRIL 10 MG TABLET (FP) PO SCH (11:12)
[2019-06-27] MEDS ORDERED: INSULIN (NOVOLOG) ASPART 100 UNITS/ML 10ML VIAL ONE (16:27)
[2019-06-27] MEDS: SUVOREXANT 10 MG TABLET PO PRN (21:52)
[2019-06-27] MEDS: THIAMINE HCL 100 MG TABLET (FP) PO SCH (21:53)
[2019-06-27] MEDS: MELATONIN 5 MG TABLETS PO PRN (21:53)
[2019-06-27] MEDS: LIDOCAINE PATCH REMOVAL MC SCH (22:57)
[2019-06-28] MEDS: INSULIN SLIDING SCALE (NOVOLOG) 1 VIAL SQ SCH ×4 (07:32→21:16)
[2019-06-28] MEDS ORDERED: INSULIN (NOVOLOG) ASPART 100 UNITS/ML 10ML VIAL ONE ×2 (07:35→22:15)
[2019-06-28] MEDS ORDERED: INSULIN (LEVEMIR) 100 UNITS/ML UNITS SQ ONE (07:37)
[2019-06-28] MEDS: INSULIN (LEVEMIR) 100 UNITS/ML UNITS SQ SCH ×2 (07:40→21:13)
[2019-06-28] MEDS: INSULIN (NOVOLOG) ASPART 100 UNITS/ML 10ML VIAL SQ SCH ×3 (07:40→17:06)
[2019-06-28] MEDS: LISINOPRIL 10 MG TABLET (FP) PO SCH (10:47)
[2019-06-28] MEDS: TAMSULOSIN HCL 0.4 MG CAP PO SCH (10:47)
[2019-06-28] MEDS: PRENATAL VITAMINS W/ FOLIC ACID TABLET (FP) PO SCH (10:48)
[2019-06-28] MEDS: LIDOCAINE 5% TOPICAL PATCH TP SCH (10:48)
[2019-06-28] MEDS: HYDROCHLOROTHIAZIDE 25 MG TABLET (FP) PO SCH (10:48)
[2019-06-28] MEDS: ASPIRIN 81 MG CHEWABLE TABLETS PO SCH (10:48)
[2019-06-28] MEDS: BUDESONIDE/FORMETEROL FUMARATE 160/4.5 mcg INHALER IH SCH ×2 (10:49→21:19)
[2019-06-28] MEDS: IBUPROFEN 600 MG TABLET (FP) PO PRN ×2 (10:49→21:18)
[2019-06-28] MEDS: LIDOCAINE PATCH REMOVAL MC SCH (21:14)
[2019-06-28] MEDS: SUVOREXANT 10 MG TABLET PO PRN (21:17)
[2019-06-28] MEDS: THIAMINE HCL 100 MG TABLET (FP) PO SCH (21:18)
[2019-06-28] MEDS: MELATONIN 5 MG TABLETS PO PRN (21:18)
[2019-06-29 07:12] VITALS: BP 145/83; PULSE 83; TEMP 97.8
[2019-06-29] MEDS ORDERED: INSULIN (NOVOLOG) ASPART 100 UNITS/ML 10ML VIAL ONE (07:30)
[2019-06-29] MEDS ORDERED: INSULIN (LEVEMIR) 100 UNITS/ML UNITS SQ ONE (07:32)
[2019-06-29] MEDS: INSULIN SLIDING SCALE (NOVOLOG) 1 VIAL SQ SCH (07:40)
[2019-06-29] MEDS: INSULIN (NOVOLOG) ASPART 100 UNITS/ML 10ML VIAL SQ SCH (07:59)
[2019-06-29] MEDS: INSULIN (LEVEMIR) 100 UNITS/ML UNITS SQ SCH (07:59)
[2019-06-29] MEDS: TAMSULOSIN HCL 0.4 MG CAP PO SCH (08:55)
--- NOTE | 2019-06-29 09:41 | DS ---
[facility] Rehab Discharge Summary - [facility] Rehab Discharge Summary Admission Date: 06/18/19 Discharge Date: 06/29/19 - History Present History: Alcohol dependence, Opioid dependence Additional Comments: Pt is a 64 y/o male with a hx of ANGEL admitted to [address] [place], [place] [address]ab from [address] [place] [address] and discharging today. Pt was in detox from 06/12-06/18/19 with a Drug of choice of heroin and alcohol. Pt has been referred for CD aftercare treatment at Pertinent Past History: Asthma, COPD IDDM HTN History of depression. - Discharge Physical Exam Vital Signs: Vital Signs Temperature 97.8 F 06/29/19 07:11 Pulse Rate 83 06/29/19 07:11 Respiratory Rate 18 06/29/19 07:11 Blood Pressure 145/83 06/29/19 07:11 O2 Sat by Pulse Oximetry (%) Alert o x 3 nad oob ambulating denies s/h/i cardiac:s1 s2,rrr lungs:cta,krystal. abdomen:+bs,soft,nt, extremities/skin:no edema,full ROM/skin intact Pertinent Admission Physical Exam Findings: Laboratory Tests 06/18/19 06/19/19 06/19/19 20:50 06:13 11:33 POC Glucometer 334 168 235 06/19/19 06/19/19 06/20/19 17:05 20:35 06:31 POC Glucometer 335 296 183 06/20/19 06/20/19 06/20/19 12:21 16:51 20:52 POC Glucometer 357 231 309 06/21/19 06/21/19 06/21/19 06:18 11:49 16:43 POC Glucometer 206 158 311 06/21/19 06/22/19 06/22/19 20:47 05:26 11:58 POC Glucometer 282 118 219 06/22/19 06/22/19 06/23/19 16:25 20:44 06:19 POC Glucometer 88 109 81 06/23/19 06/23/19 06/23/19 08:50 11:56 16:57 POC Glucometer 247 266 301 06/23/19 06/24/19 06/24/19 20:28 06:01 11:40 POC Glucometer 302 221 141 06/24/19 06/24/19 06/25/19 16:33 20:36 06:35 POC Glucometer 192 284 214 06/25/19 06/25/19 06/25/19 11:46 16:31 17:57 POC Glucometer 216 188 130 06/25/19 06/26/19 06/26/19 20:22 06:39 11:32 POC Glucometer 321 158 293 06/26/19 06/26/19 06/27/19 16:33 20:28 06:56 POC Glucometer 204 208 140 06/27/19 06/27/19 06/27/19 11:46 12:35 16:37 POC Glucometer 97 153 195 06/27/19 06/28/19 06/28/19 20:34 05:12 11:48 POC Glucometer 206 125 125 06/28/19 06/28/19 06/28/19 12:28 16:35 21:01 POC Glucometer 133 143 214 06/29/19 06/29/19 06:10 07:57 POC Glucometer 109 214 - Treatment Discharge Condition: Discharge condition good Hospital Course: rehabilitated safely CD aftercare referral accepted - Medication Discharge Medications: Ambulatory Orders Insulin (Levemir) [Levemir Flexpen -] 40 units SQ BID 06/09/12 Lisinopril [Prinivil -] 30 mg PO DAILY 08/30/14 Umeclidinium Brm/Vilanterol Tr [Anoro Ellipta 62.5-25 Mcg INH] 1 each IH DAILY 06/12/19 Insulin Lispro [Humalog Kwikpen U-100] 30 unit SQ TID 06/14/19 Naloxone HCl [Narcan] 4 mg NS ASDIR PRN #1 spray 06/14/19 Alfuzosin HCl [Alfuzosin HCl ER] 10 mg PO DAILY #30 tab.er.24h 06/29/19 Aspirin [ASA -] 81 mg PO DAILY #30 tab.chew 06/29/19 Hydrochlorothiazide [Hctz -] 25 mg PO DAILY #30 tablet 06/29/19 Insulin (Levemir) [Levemir Vial] 40 units SQ BID@0730,2130 #1 units 06/29/19 Lisinopril [Prinivil] 30 mg PO DAILY #30 tablet 06/29/19 - Medication-Assisted Treatment (MAT) Medication-Assisted Treatment (MAT): No - Discharge Instructions Diet, activity, other medical instructions: Diet:GAIL/NCS Activity: oob ad levon Other medical instructions:Follow up with CD aftercare referral as scheduled. Follow up with primary care doctor at [facility] clinic within 1 week after discharge. - Diagnosis (1) Nicotine dependence Status: Chronic Qualifiers: Nicotine product type: cigarettes Substance use status: uncomplicated Qualified Code(s): F17.210 - Nicotine dependence, cigarettes, uncomplicated (2) Alcohol dependence Status: Chronic Qualifiers: Substance use status: uncomplicated Qualified Code(s): F10.20 - Alcohol dependence, uncomplicated (3) Asthma Status: Chronic Qualifiers: Asthma severity: mild Asthma persistence: intermittent Asthma complication type: with status asthmaticus Qualified Code(s): J45.22 - Mild intermittent asthma with status asthmaticus (4) Chronic low back pain Status: Chronic Qualifiers: Back pain laterality: unspecified Sciatica laterality: sciatica laterality unspecified (5) Diabetes mellitus Status: Chronic Qualifiers: Diabetes mellitus type: type 1 (6) Essential hypertension Status: Chronic (7) Heroin dependence Status: Chronic (8) Hypercholesterolemia Status: Chronic (9) Pituitary adenoma Status: Chronic - Follow-up Referral Minutes to complete discharge: 25 - AMA Did Patient Leave Against Medical Advice: No Additional Comments: Courtesy Rx electronically sent to pt's pharmacy for pick up and delivery driver after discharge.
[2019-06-29] MEDS: HYDROCHLOROTHIAZIDE 25 MG TABLET (FP) PO SCH (10:24)
[2019-06-29] MEDS: LIDOCAINE 5% TOPICAL PATCH TP SCH (10:24)
[2019-06-29] MEDS: PRENATAL VITAMINS W/ FOLIC ACID TABLET (FP) PO SCH (10:24)
[2019-06-29] MEDS: BUDESONIDE/FORMETEROL FUMARATE 160/4.5 mcg INHALER IH SCH (10:24)
[2019-06-29] MEDS: ASPIRIN 81 MG CHEWABLE TABLETS PO SCH (10:25)
[2019-06-29] MEDS: LISINOPRIL 10 MG TABLET (FP) PO SCH (10:25)
[2019-06-29] MEDS: IBUPROFEN 600 MG TABLET (FP) PO PRN (10:26)
== END 2019-06-29 11:00 | disposition home or self-care (01) | DRG 895 ==
LOC: YASAS 14:59 → Y5N 15:01 → Y3E 06-21 10:50 → Y5N 06-21 10:51
PROVIDERS: ADMIT Neuromusculoskeletal Medicine & OMM; ATTEND Neuromusculoskeletal Medicine & OMM
PROC: HZ42ZZZ Group Counseling for Substance Abuse Treatment, Cognitive-Behavioral (ICD-10-PCS; principal; 2019-06-18)
DX: F10.20 Alcohol dependence, uncomplicated (principal); F11.20 Opioid dependence, uncomplicated; F17.210 Nicotine dependence, cigarettes, uncomplicated; F19.24 Other psychoactive substance dependence with psychoactive substance-induced mood disorder; G47.00 Insomnia, unspecified; I10 Essential (primary) hypertension; E11.9 Type 2 diabetes mellitus without complications; Z79.4 Long term (current) use of insulin; J44.9 Chronic obstructive pulmonary disease, unspecified; J45.998 Other asthma; J02.0 Streptococcal pharyngitis; M54.89 Other dorsalgia; G89.29 Other chronic pain; Z88.2 Allergy status to sulfonamides; Z88.0 Allergy status to penicillin
CPT/HCPCS: 82962; 94640